=== PATIENT | female | born 1930 | race Caucasian/White ===

== ENCOUNTER 2018-11-30 11:29 | Inpatient (IN) | payer MEDICARE, BC ==
[~2018-11-30] VITALS: Ht 165.1 cm; Wt 43.3 kg
[2018-11-30] MEDS ORDERED: B-12 100 MCG PO (11:57)
[2018-11-30] MEDS ORDERED: ASPIRIN 81M81 MG/TA2 PO (11:57)
[2018-11-30 12:16] LABS: BASO # 0.1 (0.0-0.2); BASO % 0.5 % (0.0-2.0); EOS % 0.4 % (0-4.0); GRAN # 7.6 (1.4-6.5); GRAN % 75.7 % (42.2-75.2); HEMATOCRIT 44.3 % (37.0-47.0); HEMOGLOBIN 14.7 g/dl (12.5-16.0); LYMPH # 1.8 (1.2-3.4); LYMPH % 17.9 % (20.0-51.0); MEAN CELL VOLUME 98 fl (80.0-100.0); MEAN CORPUSCULAR HEMOGLOBIN 33 pg (27.0-31.0); MEAN CORPUSCULAR HGB CONC 33 g/dl (33.0-37.0); MONO # 0.5 (0.1-0.6); PLATELET COUNT 293 K/mm3 (130-400); RED BLOOD COUNT 4.51 M/mm3 (4.10-5.30); REDCELL DISTRIBUTION WIDTH-CV 12.7 % (11.5-14.5)
[2018-11-30 12:28] LABS: ALBUMIN 4.3 gm/dL (3.5-5.0); BILIRUBIN,TOTAL 0.7 mg/dL (0.0-1.0); CALCIUM 9.7 mg/dL (8.4-10.2); CREATININE, serum 0.69 mg/dL (0.52-1.25); POTASSIUM 4.5 mmol/L (3.4-5.0); TOTAL PROTEIN 7.5 gm/dL (6.4-8.2)
--- NOTE | 2018-11-30 15:20 | NUR ---
admitted to room from ED per cart, assisted off cart and into bed per slide board, tolerated being moved without c/os pain
--- NOTE | 2018-11-30 15:30 | NUR ---
full assessment completed, see intervention for further info, denies pain or needs at this time, instructed on ordering regular food, daughter at bedside
[2018-11-30 15:41] LABS: PROTHROMBIN TIME 11.4 SECONDS (9.7-12.8)
[2018-11-30 15:56] VITALS: BP 108/62; PULSE 78; TEMP 98
--- NOTE | 2018-11-30 16:20 | NUR ---
cardiopulmonary in and EKG completed, then simmons cath inserted under sterile technique, tolerated well
--- NOTE | 2018-11-30 16:40 | NUR ---
sitting up in bed to eat supper
[2018-11-30 16:50] LABS: MUCOUS Present /lpf; PH 5 (5-8); SQUAMOUS EPITHELIAL None Seen /hpf; URINE APPEARANCE Hazy; URINE BACTERIA Rare /hpf; URINE BILIRUBIN Negative (NEGATIVE); URINE BLOOD 1+ (NEGATIVE); URINE COLOR Amber; URINE GLUCOSE Negative (NEGATIVE); URINE KETONE Trace (NEGATIVE); URINE LEUKOCYTE ESTERASE Negative (NEGATIVE); URINE NITRATE Positive (NEGATIVE); URINE PROTEIN(semi-quant) 1+ (NEGATIVE); URINE RBC 0-2 /hpf; URINE WBC 0-2 /hpf
[2018-11-30 17:05] LABS: COLLECTION METHOD CLEAN CATCH
--- NOTE | 2018-11-30 17:15 | NUR ---
had only small amount of supper, states just no appetite, IV started in left forearm, family in to visit
--- NOTE | 2018-11-30 18:23 | NUR ---
resting in bed with TV on, denies needs
--- NOTE | 2018-11-30 18:47 | NUR ---
bedside shift report given to CALLI Ackerman
[2018-11-30 19:47] VITALS: BP 102/59; PULSE 86; TEMP 98.6
--- NOTE | 2018-11-30 20:00 | NUR ---
Patient in bed resting, Daughter at bedside. Shift assessment complete. Maza to dependent drainage with hazy han urine present. Right arm with reyes wrap and splint. Teds and SCDs to BLE. Pedal pulses intact to BLE. Denies pain at this time. Denies further needs at this time.
[2018-12-01] VITALS (12 sets, daily range): BP systolic 91–141; BP diastolic 52–96; PULSE 68–94; TEMP 97.7–98.5
--- NOTE | 2018-12-01 03:40 | NUR ---
Contacted Yessy ENCARNACION, patient having low urine output. Fluid bolus, and increased fluid rate. Will continue to monitor.
--- NOTE | 2018-12-01 05:44 | NUR ---
Patient has rested well through the night, minimal needs. Maza maintained to dependent drainge with hazy han urine present. Continues to deny pain. Tedhose and SCDs to BLE. Denies further needs at this time. Will report off to day shift.
[2018-12-01 08:18] LABS: BASO % 0.5 % (0.0-2.0); EOS % 0.5 % (0-4.0); GRAN # 5.7 (1.4-6.5); GRAN % 69.5 % (42.2-75.2); LYMPH # 1.4 (1.2-3.4); LYMPH % 17.6 % (20.0-51.0); MEAN CELL VOLUME 98 fl (80.0-100.0); MEAN CORPUSCULAR HGB CONC 33 g/dl (33.0-37.0); MEAN PLATELET VOLUME 10.7 fl (7.4-10.4); MONO # 0.9 (0.1-0.6); MONO % 11.4 % (1.7-9.3); PLATELET COUNT 216 K/mm3 (130-400); RED BLOOD COUNT 3.21 M/mm3 (4.10-5.30); REDCELL DISTRIBUTION WIDTH-CV 12.8 % (11.5-14.5)
[2018-12-01 08:20] LABS: HEMATOCRIT 31.5 % (37.0-47.0); HEMOGLOBIN 10.4 g/dl (12.5-16.0); MEAN CORPUSCULAR HEMOGLOBIN 32 pg (27.0-31.0)
[2018-12-01 08:37] LABS: CALCIUM 8.6 mg/dL (8.4-10.2); CREATININE, serum 0.63 mg/dL (0.52-1.25); POTASSIUM 4.5 mmol/L (3.4-5.0)
--- NOTE | 2018-12-01 09:00 | NUR ---
HOSPITALIST TEAM ROUNDING. SEE ORDERS. PATIENT SCHEDULED FOR SURGERY AROUND 1300 TODAY.
--- NOTE | 2018-12-01 09:36 | NUR ---
steel worker met with patient to discuss discharge planning. patient lives in [place] independently. Patients lives at [facility] however she still lives at home. Her PCP is Dr Rogers and she obtains her medications from [facility]. Patient would ilke to go to [facility] for skilled care and signed a choice form. LEONIE called Billy at [facility] who reports they will have an open bed for sure on Tuesday but could possibly on Tuesday if patient is ready to discharge. Referral faxed. LEONIE will continue to follow.
--- NOTE | 2018-12-01 12:52 | NUR ---
PATIENT GOING DOWN TO OR VIA BED. FAMILY AT BEDSIDE. CONSENT ON CHART.
--- NOTE | 2018-12-01 13:05 | NUR ---
Patient accepted to [facility] pending patients Payment of the husbands bill. Billy from [facility] talked with patients son and daughter who report they will pay tuesday all they have to do is transfer the money and bring the check. SW will continue to follow.
--- NOTE | 2018-12-01 18:00 | NUR ---
PATIENT BACK FROM OR. A&O. VSS. DENIES PAIN. PATIENT REPORTS SHE IS HUNGRY AND IS LOOKING AT MENU WITH FAMILY. RUE DRESSING IS CD&I WITH ACEWRAP AND SPLINT. RLE DRESSINGS X3 ARE CD&I WITH GAUZE & TEGA. TEDS TO LLE. SCD'S TO BLE. POSITIVE PEDAL PULSES. CONNOR TO DEPENDENT DRAINAGE. IV FLUIDS INFUSING. NO C/O N/V. FAMILY AT BEDSIDE.
--- NOTE | 2018-12-01 20:00 | NUR ---
Patient resting in bed at this time. Patient is easily rousable and is alert and oriented while awake, answers questions appropriately. Post op check continue per order, VS WNL. Patient denies pain or needs at this time, call light within reach.
[2018-12-02 03:58] VITALS: BP 131/64; PULSE 82; TEMP 98
--- NOTE | 2018-12-02 05:23 | NUR ---
Patient has rested well overnight. Patient is alert and oriented while awake. No complaints of pain. CMS intact in operative extremities. IVF continue per order. Gauze dressing to right hip remains CDI. Sling in right arm, dressing appears to be CDI. Patient denies further needs at this time, call light within reach.
[2018-12-02 06:05] LABS: BASO % 0.3 % (0.0-2.0); EOS % 0.1 % (0-4.0); GRAN % 74.9 % (42.2-75.2); LYMPH % 12.4 % (20.0-51.0); MEAN CELL VOLUME 98 fl (80.0-100.0); MEAN CORPUSCULAR HGB CONC 33 g/dl (33.0-37.0); MEAN PLATELET VOLUME 10.8 fl (7.4-10.4); MONO % 11.9 % (1.7-9.3); PLATELET COUNT 165 K/mm3 (130-400); RED BLOOD COUNT 2.43 M/mm3 (4.10-5.30); REDCELL DISTRIBUTION WIDTH-CV 12.5 % (11.5-14.5)
[2018-12-02 06:14] LABS: HEMATOCRIT 23.9 % (37.0-47.0); HEMOGLOBIN 7.9 g/dl (12.5-16.0); MEAN CORPUSCULAR HEMOGLOBIN 33 pg (27.0-31.0)
[2018-12-02 06:21] LABS: CALCIUM 7.9 mg/dL (8.4-10.2); CREATININE, serum 0.57 mg/dL (0.52-1.25)
[2018-12-02 14:15] LABS: HEMATOCRIT 23.3 % (37.0-47.0)
--- NOTE | 2018-12-02 18:51 | NUR ---
REPORT GIVEN TO CALLI TOLBERT.
[2018-12-02 19:20] VITALS: BP 114/59; PULSE 73; TEMP 97.7
--- NOTE | 2018-12-02 20:00 | NUR ---
Patient resting in bed at this time. Patient rouses easily and is alert and oriented while awake, answers questions appropriately. Patient on room air initially, replaced O2 and reminded patient of need to wear nasal cannula. Dressing to right hip is CDI, right arm remians in sling, dressing appears CDI, CMS intact on both operative extremeties. Patient currently denies pain. Maza remains in place draining clear, yellow urine. Patient denies further needs at this time, call light within reach.
[2018-12-03 04:15] VITALS: BP 114/65; PULSE 78; TEMP 98.3
--- NOTE | 2018-12-03 05:45 | NUR ---
Patient rested well overnight. No complaints of pain. Maza remains in place draining clear, yellow urine. Patient denies further needs, call light within reach.
[2018-12-03 06:01] LABS: BASO % 0.2 % (0.0-2.0); EOS % 0.2 % (0-4.0); GRAN # 6.8 (1.4-6.5); LYMPH # 1.3 (1.2-3.4); LYMPH % 13.7 % (20.0-51.0); MEAN CELL VOLUME 97 fl (80.0-100.0); MEAN CORPUSCULAR HGB CONC 33 g/dl (33.0-37.0); MEAN PLATELET VOLUME 10.3 fl (7.4-10.4); MONO # 1.1 (0.1-0.6); MONO % 11.4 % (1.7-9.3); PLATELET COUNT 171 K/mm3 (130-400); RED BLOOD COUNT 2.57 M/mm3 (4.10-5.30); REDCELL DISTRIBUTION WIDTH-CV 12.4 % (11.5-14.5)
[2018-12-03 06:12] LABS: CALCIUM 8.2 mg/dL (8.4-10.2); CREATININE, serum 0.51 mg/dL (0.52-1.25); POTASSIUM 3.9 mmol/L (3.4-5.0)
[2018-12-03 06:13] LABS: HEMATOCRIT 24.9 % (37.0-47.0); HEMOGLOBIN 8.3 g/dl (12.5-16.0); MEAN CORPUSCULAR HEMOGLOBIN 32 pg (27.0-31.0)
--- NOTE | 2018-12-03 08:00 | NUR ---
PATIENT IS DROWSY THIS MORNING, BUT AROUSES EASILY TO NAME. PATIENT IS A&O. VSS. GENERALIZED WEAKNESS NOTED. UPPER LUNG LOBES CLEAR TO AUSCULTATION. BASES COARSE BILATERALLY. PATIENT DENIES SHORTNESS OF BREATH. PATIENT HAS PRODUCTIVE COUGH WITH SMALL AMOUNTS OF PALE YELLOW SPUTUM. 02 AT 2L VIA NASAL CANNULA. BOWEL SOUNDS ACTIVE ALL FOUR QUADRANTS. PATIENT TOLERATING FOOD & LIQUIDS WITHOUT ANY COMPLAINTS OF N/V. POSITIVE PEDAL PULSES EQUAL BILATERALLY. 1+ PITTING-EDEMA TO RLE NOTED. REDNESS ON RIGHT BARRIOS AROUND SCABBED OVAL SHAPED ULCER NOTED. CAP REFILL <3 SECONDS. CMS INTACT. NELL HOSE TO LLE. RIGHT HIP DRESSED WITH GAUZE AND TEGADERM AND IS CD&I. RUE TO SLING WITH SPLINT. CONNOR CATHETER TO DEPENDENT DRAINAGE WITH SMALL AMOUNTS OF PALE YELLOW URINE PRESENT IN CONNOR BAG. INT TO LEFT FOREARM. PATIENT REPOSITIONED IN BED. RLE & RUE POSITIONED ON PILLLOWS. CALL LIGHT WITHIN REACH. PATIENT DENIES ANY OTHER NEEDS AT THIS TIME.
--- NOTE | 2018-12-03 11:00 | NUR ---
PATIENT RIGHT BARRIOS SCAB DRESSED WITH NON-ADHESIVE GAUZE PAD & COVERED WITH COBAN. NELL HOSE APPLIED OVER NEW BARRIOS DRESSING.
--- NOTE | 2018-12-03 11:45 | NUR ---
CONNOR CATHETER DC'D PER DOCTOR'S ORDERS. 9 MLS OF SALINE ASPIRATED FROM CONNOR BALLOON. BALLOON TIP INTACT. PATIENT TOLERATED WELL. NO OTHER NEEDS AT THIS TIME.
--- NOTE | 2018-12-03 14:08 | NUR ---
PATIENT HAD INCONTINENT VOID AFTER CONNOR REMOVAL. PATIENT VOIDING SUFFICIENTLY.
--- NOTE | 2018-12-03 19:13 | NUR ---
REPORT GIVEN TO SHAYY TOLBERT.
[2018-12-03 20:24] VITALS: BP 96/53; PULSE 86; TEMP 97.5
[2018-12-04 00:20] VITALS: BP 109/61; PULSE 86; TEMP 98.2
[2018-12-04 04:00] VITALS: BP 118/67; PULSE 84; TEMP 98.4
--- NOTE | 2018-12-04 04:50 | NUR ---
Patient has rested intermittently overnight. Patient has continued to deny pain. Gauze dressing to right hip remains CDI, right arm in sling, CMS intact to both operative extremities. Patient has had two incontinent episodes this shift, is able to report to staff when she needs help getting cleaned up. Patient is otherwise alert and oriented, answers questions appropriately. IV site was due to be changed early in the shift, Replaced it with a 22G in left forearm in one attempt; patient tolerated procedure well, no indication of infilration. Patient denies pain or further needs at this time, call light within reach.
--- NOTE | 2018-12-04 06:48 | NUR ---
awake resting in bed, bedside shift report received from SHAYY Garrett
--- NOTE | 2018-12-04 07:10 | NUR ---
resting in bed and full assessment completed, see interventions for further info, fingers to right hand with some swelling but good cap refill and sensation and able to move them, breakfast ordered
[2018-12-04] MEDS ORDERED: SENOKOT S 50 MG1 TAB PO (07:35)
[2018-12-04] MEDS ORDERED: TYLENOL 325MG325 MG PO (07:36)
[2018-12-04] MEDS ORDERED: GOOD NEIGH1200 MG/15 PO (07:36)
[2018-12-04] MEDS ORDERED: DULCOLAX S10 MG/SUPP RC (07:36)
[2018-12-04] MEDS ORDERED: ASPI325T6 PO (07:38)
[2018-12-04 07:39] LABS: BASO % 0.3 % (0.0-2.0); EOS # 0.1 (0.0-0.7); EOS % 1.7 % (0-4.0); GRAN # 5.3 (1.4-6.5); GRAN % 69.2 % (42.2-75.2); LYMPH # 1.3 (1.2-3.4); MEAN CELL VOLUME 99 fl (80.0-100.0); MEAN CORPUSCULAR HGB CONC 33 g/dl (33.0-37.0); MEAN PLATELET VOLUME 10.3 fl (7.4-10.4); MONO # 0.9 (0.1-0.6); MONO % 11.1 % (1.7-9.3); PLATELET COUNT 210 K/mm3 (130-400); RED BLOOD COUNT 2.45 M/mm3 (4.10-5.30); REDCELL DISTRIBUTION WIDTH-CV 12.4 % (11.5-14.5)
[2018-12-04 07:40] VITALS: BP 107/63; PULSE 58; TEMP 98.2
[2018-12-04] MEDS ORDERED: IPRATROPIUM BROM3 M1 IH ×2 (07:40)
[2018-12-04 07:41] LABS: HEMATOCRIT 24.2 % (37.0-47.0); MEAN CORPUSCULAR HEMOGLOBIN 33 pg (27.0-31.0)
[2018-12-04] MEDS ORDERED: ULTRAM 50MG TAB50 MG PO (07:41)
--- NOTE | 2018-12-04 09:00 | NUR ---
Dr Fraire and care team in to see patient
--- NOTE | 2018-12-04 09:31 | NUR ---
hot stick worker met with patient and son, Brando #[phone] to discuss discharge planning. Patient was accepted to skilled care at [facility], however, Dr Fraire has made a referral to [facility]. Patient and son verbalize approval of this plan. We await screening. Worker contacted Billy at [facility] and advised of the above information.
--- NOTE | 2018-12-04 09:45 | NUR ---
resting in bed visiting with family
--- NOTE | 2018-12-04 11:30 | NUR ---
up in recliner and appears to be sleeping, resp quiet and easy
[2018-12-04 11:33] VITALS: BP 86/50; PULSE 68; TEMP 98.1
--- NOTE | 2018-12-04 12:34 | NUR ---
in chair and appears to be sleeping arouses easily
--- NOTE | 2018-12-04 13:13 | NUR ---
Kirsten with INpatient Rehab accepts patient on 12/05/18. Son, daughter, and patient are aware and agreeable to discharge plan. Worker notified Billy at [facility].
--- NOTE | 2018-12-04 14:00 | NUR ---
assisted up and ambulated short distance to bedside commode, then back to bed, tolerated well
[2018-12-04 15:47] VITALS: BP 90/60; PULSE 89; TEMP 98.5
--- NOTE | 2018-12-04 16:06 | NUR ---
resting in bed, states had a good nap
--- NOTE | 2018-12-04 17:00 | NUR ---
watching TV, assisted with ordering supper
--- NOTE | 2018-12-04 18:45 | NUR ---
bedside shift report given to CALLI Noel
[2018-12-04 20:08] VITALS: BP 134/78; PULSE 80; TEMP 98.6
--- NOTE | 2018-12-04 21:08 | NUR ---
Pt resting in bed watching TV, talkative and appropriate, some C/O pain in R foot, loosened SCD on R side to provide relief. left Pt call light in reach, bed in lowest position.
--- NOTE | 2018-12-05 05:17 | NUR ---
Pt slep well during the night, no C/O or noticable indication of pain during the shift, VS have been stable. Pt kept the right arm elevated on pillows.
[2018-12-05 07:04] VITALS: BP 113/70; PULSE 99; TEMP 97.4
[2018-12-05] MEDS ORDERED: FERROUS SU325 MG/TAB PO (07:39)
[2018-12-05] MEDS ORDERED: CEFTIN 250250 MG/TAB PO (07:40)
[2018-12-05 08:52] LABS: BASO % 0.4 % (0.0-2.0); EOS # 0.2 (0.0-0.7); EOS % 1.9 % (0-4.0); GRAN # 7.3 (1.4-6.5); GRAN % 75.4 % (42.2-75.2); LYMPH # 1.5 (1.2-3.4); LYMPH % 15.3 % (20.0-51.0); MEAN CELL VOLUME 97 fl (80.0-100.0); MEAN CORPUSCULAR HGB CONC 33 g/dl (33.0-37.0); MEAN PLATELET VOLUME 10.3 fl (7.4-10.4); MONO # 0.6 (0.1-0.6); MONO % 6.6 % (1.7-9.3); PLATELET COUNT 246 K/mm3 (130-400); RED BLOOD COUNT 2.99 M/mm3 (4.10-5.30); REDCELL DISTRIBUTION WIDTH-CV 12.7 % (11.5-14.5)
[2018-12-05 08:54] LABS: HEMOGLOBIN 9.7 g/dl (12.5-16.0); MEAN CORPUSCULAR HEMOGLOBIN 32 pg (27.0-31.0)
--- NOTE | 2018-12-05 10:39 | NUR ---
The patient is to transfer to [facility] today, 12/05. No additional needs at this time.
[2018-12-05 11:21] VITALS: BP 108/67; PULSE 100; TEMP 98.2
--- NOTE | 2018-12-05 14:13 | NUR ---
report to Ericka MCCURDY. pt Transfered to IPR.@[id number]
== END 2018-12-05 13:30 | DRG 480 ==
LOC: COL.ER 11:29 → SURG 12:33
PROVIDERS: Emergency Medicine; Nurse Practitioner Family; Orthopaedic Surgery; Physician Assistant; ADMIT Family Medicine
PROC: 0QS636Z Reposition Right Upper Femur with Intramedullary Internal Fixation Device, Percutaneous Approach (ICD-10-PCS; principal; 2018-12-01 13:30)
PROC: 0PSK04Z Reposition Right Ulna with Internal Fixation Device, Open Approach (ICD-10-PCS; 2018-12-01 13:30)
DX: S72.21XA Displaced subtrochanteric fracture of right femur, initial encounter for closed fracture (principal); J96.01 Acute respiratory failure with hypoxia; E43 Unspecified severe protein-calorie malnutrition; N39.0 Urinary tract infection, site not specified; Z68.1 Body mass index [BMI] 19.9 or less, adult; S52.021A Displaced fracture of olecranon process without intraarticular extension of right ulna, initial encounter for closed fracture; W01.0XXA Fall on same level from slipping, tripping and stumbling without subsequent striking against object, initial encounter; T68.XXXA Hypothermia, initial encounter; F17.210 Nicotine dependence, cigarettes, uncomplicated; J44.9 Chronic obstructive pulmonary disease, unspecified; D50.0 Iron deficiency anemia secondary to blood loss (chronic); B96.20 Unspecified Escherichia coli [E. coli] as the cause of diseases classified elsewhere
CPT/HCPCS: 99222-AI; 99232-AI; 99233-AI; 99239; A4216; A9284; C1713; J0690; J0696; J1650; J2250; J2370; J2704; J2795; J3010; J7050; J7120; Q4050

== ENCOUNTER 2018-12-05 13:11 | Inpatient (IN) | payer MEDICARE, BC ==
[~2018-12-05] VITALS: Ht 165.1 cm; Wt 45.2 kg
[~2018-12-05 13:11] MED LIST: ASPI325T6 PO; ASPIRIN 81M81 MG/TA2 PO; B-12 100 MCG PO; CEFTIN 250250 MG/TAB PO; DULCOLAX S10 MG/SUPP RC; FERROUS SU325 MG/TAB PO; GOOD NEIGH1200 MG/15 PO; IPRATROPIUM BROM3 M1 IH; SENOKOT S 50 MG1 TAB PO; TYLENOL 325MG325 MG PO; ULTRAM 50MG TAB50 MG PO
[2018-12-05 14:18] VITALS: BP 115/74; PULSE 94; TEMP 97.6
[2018-12-05 18:02] VITALS: BP 118/75; PULSE 106; TEMP 97.9
--- NOTE | 2018-12-05 18:30 | NUR ---
Patient arrived to Room 335 this afternoon at 1350 today. Denies pain at this time. Reviewed IPR daily routines and patient signed admission forms. Initial was completed by Grisel. Patient comfortable resting in recliner, call light in reach, chair alarm on and slip proof socks on. Patient in pleasent mood. Will continue to monitor.
--- NOTE | 2018-12-05 21:15 | NUR ---
HS meds all reviewed and taken without problems. Denies pain or need for pain med. See admission assessment. RUE splint/reyes/sling CDI fingers puffy but pink and warm and pathologist assistant moderate. Noted 1.5cm/1 cm wound to right vazquez thats surrounded by dry scaly skin/center dk reddish color/no active drainage. Obtained wound at home when picking up wood for fireplace,dropped and hit leg. Area cleansed with saline, patted dry, xeroform applied followed by exu-dry wound dressing. Patient reports wound doesn't hurt. Lower right leg has brownish discoloration. Patient declines snack and HS care.
--- NOTE | 2018-12-05 23:00 | NUR ---
Patient rests in bed with eyes closed. Respirations with ease.
--- NOTE | 2018-12-06 02:45 | NUR ---
Patient has been resting with eyes closed. Respirations with ease. RT did o2 spot check and read 92% RA.
--- NOTE | 2018-12-06 04:30 | NUR ---
Nurse into patients room and patient awake. Reports she needs to go to the bathroom. "already wet myself". Max 2 assist to sit up,stand and rest back in bed. Staff changes patients pullup. Declines pain med.
[2018-12-06 04:33] VITALS: BP 127/75; PULSE 90; TEMP 97.8
--- NOTE | 2018-12-06 12:40 | NUR ---
Pt's sister Abbey visiting and doing pt's hair in curls and nancy pins. Pt denies pain, declines offer of tylenol or alt food for lunch.
--- NOTE | 2018-12-06 12:41 | NUR ---
Air mattress in place on bed and seat cushion in recliner.
[2018-12-06 17:37] VITALS: BP 113/72; PULSE 43; TEMP 97.5
--- NOTE | 2018-12-06 20:31 | NUR ---
Pt declined tylenol with supper, set up in bed, report to CALLI Valdivia. Bed alarm on. Call light in reach.
[2018-12-06 20:42] VITALS: PULSE 90
--- NOTE | 2018-12-06 21:00 | NUR ---
PLEASANT AND COOPERATIVE. A&O X4. SEE COMPLETED ASSESSMENT. SEE MAR FOR TYLENOL FOR GENERALIZED ACHES. TOOK HS SNACK. RT HERE EARLIER FOR O2 SAT CHECK- 91% RA. WEARS BRIEFS FOR URINARY INCONTINENCE. CALL LIGHT IN REACH. BED ALARM SET.
--- NOTE | 2018-12-06 23:00 | NUR ---
MAX 1 ASSIST TO BSC WITH HEMIWALKER. VOIDED WITH LG SOFT BROWN BM. CHANGED CLOTHING THE THE NIGHT. SLING TO RUE SPLINT. FINGERS WARM PINK & SWOLLEN. ELEVATED ON PILLOW WHEN BACK IN BED. RLE ELEVATED ON PILLOW. DENIES NEEDS FOR FURTHER PAIN MED. CALL LIGHT IN REACH. BED ALARM SET. TEDS OFF FOR THE NIGHT.
[2018-12-07 06:46] VITALS: BP 104/72; PULSE 78; TEMP 98.9
--- NOTE | 2018-12-07 06:56 | NUR ---
O2 SAT 81`% RA. STARTED O2 AT 1L NC.
[2018-12-07 07:46] VITALS: PULSE 92
--- NOTE | 2018-12-07 07:49 | NUR ---
Report from CALLI Valdivia. Pt sitting up in bed for breakfast. Takes pills with water, Rechecked SpO2 on RA=92% with prompting to take deep breaths. Radial pulse 92.
--- NOTE | 2018-12-07 09:47 | NUR ---
Pt called to return to bed after first therapy, next therapy is ST, pt agreeable to sit up in wc. Donned right NELL malik as pt states it feels more comfortable with it on. Yellow gripper socks in place.
--- NOTE | 2018-12-07 09:48 | NUR ---
Wound dressing to RLE intact
--- NOTE | 2018-12-07 10:28 | NUR ---
Coccyx: Left coccyx has intact blistered areas that are non-blanchable, right side of coccyx is blanchable. Applied flower petal foam pad. Pt to bed with RLE and RUE elevated, TEDS GUY, air mattress in place. Alarm on, call light in reach, sling to RUE. Pt pivot transferred with mod assist of one and a second assit for toileting management on BSC, continent, wearing pull ups, had BM.
--- NOTE | 2018-12-07 10:50 | NUR ---
SW met with the patient to complete intial intake and to discuss the IPR Team Conference Note. The patient lives alone in [place]. Her resides at [facility] and her son, Anatoliy, lives outside of [place] and works at [employer]. She reports being independent with ADLs prior to IPR and has a cane, walkers, and wheelchair. The patient's PCP is Dr. Marshal Rogers and she receives her medications at the [facility]. She reports no difficulties obatining her meds. The patient does not have advanced directives in EMR, but she states that she does have them completed. SW reviewed the IPR Team Conference Note with the patient and discussed having a family meeting next Tuesday, 12/13. The patient was in agreeance to the plan and had no other questions or concerns at this time. SW contacted the lisa's son, Anatoliy. A family meeting was scheduled for 12/13 at 1345. SW to continue to follow.
[2018-12-07 15:20] VITALS: BP 112/74; PULSE 109; TEMP 98.5
--- NOTE | 2018-12-07 20:04 | NUR ---
Patient resting in bed watching tv. Requested to be boosted up in bed. Denies pain. Evening medications given. No other needs at this time.
--- NOTE | 2018-12-07 21:11 | NUR ---
Report to Rosie. Pt in bed with alarm on, call lt in reach. Denies needs/pain
[2018-12-08 04:46] VITALS: BP 116/93; PULSE 99; TEMP 98.2
[2018-12-08 06:17] LABS: BASO % 0.3 % (0.0-2.0); EOS # 0.2 (0.0-0.7); GRAN # 8.8 (1.4-6.5); GRAN % 78.8 % (42.2-75.2); LYMPH # 1.1 (1.2-3.4); MEAN CELL VOLUME 99 fl (80.0-100.0); MEAN CORPUSCULAR HGB CONC 33 g/dl (33.0-37.0); MEAN PLATELET VOLUME 9.9 fl (7.4-10.4); MONO # 0.9 (0.1-0.6); MONO % 8.1 % (1.7-9.3); PLATELET COUNT 238 K/mm3 (130-400); RED BLOOD COUNT 2.62 M/mm3 (4.10-5.30); REDCELL DISTRIBUTION WIDTH-CV 14.1 % (11.5-14.5)
[2018-12-08 06:30] LABS: HEMATOCRIT 25.9 % (37.0-47.0); HEMOGLOBIN 8.5 g/dl (12.5-16.0); MEAN CORPUSCULAR HEMOGLOBIN 32 pg (27.0-31.0)
--- NOTE | 2018-12-08 06:37 | NUR ---
Patient slept most of the night, no pain. VSS. No other needs at this time.
[2018-12-08 18:57] VITALS: BP 107/58; PULSE 85; TEMP 98.1
--- NOTE | 2018-12-08 19:00 | NUR ---
Patient resting in bed at this time, call light in reach and bed alarm is on. Rt. hip incision is CDI and gauze and tegaderm in place. NWB to E and has arm in sling at this time. Patient reporting some pain to her upper chest when she was transferred the other day. Pain is minimal, but enough to bother her, currently has a heat pad on that area, no bruising observed. Reported off to night nurse to make sure staff transfer her gently and put gait belt around waist only. She voiced understanding. Patient wears briefs. Reported some 1-2/10 pain to RUE and RLE this morning prior to therapy and given prn tylenol with good effect. Patient atteneded all therapies. She doesn't eat very much, but has been drinking her nutrition drinks today. Gave report to night nurse.
--- NOTE | 2018-12-08 20:00 | NUR ---
Patient in bed resting. Alert and oriented x3. Shift assessment complete. Tedhose to BLE. Left hip incisions CDI. Denies pain. Left arm in sling with ABAD wrap, CDI. Denies further needs at this time.
[2018-12-09 02:10] VITALS: PULSE 79
[2018-12-09 05:23] VITALS: BP 116/72; PULSE 86; TEMP 97.7
--- NOTE | 2018-12-09 05:52 | NUR ---
Patient has rested well through the night. Minimal needs. Up to comode, x1 assist. Continues to deny pain at this time. Laith hose to BLE maintained through the night. Denies further needs at this time.
--- NOTE | 2018-12-09 09:18 | NUR ---
PT DENIES PAIN, NO MEDS GIVEN. PT REPORTS EATING WELL. GAUZE DRESSING TO RIGHT HIP AND DOWN THE THIGH, IN SMALL GAUZE SWUARES, CDI. RIGHT ELBOW IN SLING WITH HOT PAD IN PLACE. PT STATES THIS FEELS GOOD. PT TAKES MED EASILY WITH WATER. APPEARS HAPPY AND VERY CONVERSANT WITH STAFF. WITH A LOT OF TAKING PT IS SOB. IS AT BEDSIDE. ENCOURAGED TO USE IS. CALL LIGHT IN REACH.
[2018-12-09 17:08] VITALS: BP 110/60; PULSE 94; TEMP 100; TEMP 98.1
--- NOTE | 2018-12-09 20:30 | NUR ---
Pt. laying in bed watching TV. Pt. is A&OX3, assessment complete. Pt. denies pain or other needs at this time. Call light within reach.
[2018-12-10 03:43] VITALS: BP 136/81; PULSE 90; TEMP 98.2
--- NOTE | 2018-12-10 05:43 | NUR ---
Pt. slept well through the night. Pt. remains A&Ox3. Pt. denies pain or other needs. Call light within reach.
--- NOTE | 2018-12-10 08:00 | NUR ---
PATIENT IS DROWSY THIS MORNING AND RESTING IN BED, BUT AROUSES EASILY TO NAME. PATIENT IS A&O. GENERALIZED WEAKNESS NOTED. BOWEL SOUNDS HYPOACTIVE ALL FOUR QUADRANTS. PATIENT TOLERATING FOOD & LIQUIDS WITHOUT ANY COMPLAINTS OF N/V. POSITIVE PEDAL PULSES EQUAL BILATERALLY. CAP REFILL <3 SECONDS. CMS. RIGHT HIP INCISION SITES X2 DRESSED WITH GAUZE AND TEGADERM AND ARE CD&I. NELL HOSE AND SCD'S TO BLE. MEPLEX TO RIGHT BARRIOS SKIN TEAR IS CD&I. RUE TO SPLINT WITH SLING AND IS CD&I. NON-PITTING EDEMA TO RIGHT HAND NOTED. CMS INTACT. CAP REFILL <3 SECONDS. PATIENT DENIES PAIN AT THIS TIME. BREAKFAST TRAY EATEN. PATIENT REPOSITIONED IN BED. CALL LIGHT WITHIN REACH. PATIENT DENIES ANY OTHER NEEDS AT THIS TIME.
[2018-12-10 17:25] VITALS: BP 108/61; PULSE 90; TEMP 97.5
--- NOTE | 2018-12-11 01:12 | NUR ---
THE PT WAS BEDRESTING WITH TV ON THE SHIFT BEGAN. 1 MAX ASSIST TO BRING HER TO THE CENTER OF THE BED AND UP SHE HAD SLID DOWN AND WORKED HERSELF OVER TO THE LEFT EDGE OF THE BED. RIGHT ARM IN A SLING, CSM'S +, VERBALIZED THAT SHE FEELS THE SWELLING IS SLOWLY GETTING BETTER. REFUSED AN HS SNACK, RATED PAIN AT A 3\10. SHE IS A 1 MOD ASSIST TO TRANSFER TO [facility] AND VOIDED, SHE REFUSED BOWEL MEDS, STATED THAT SHE HAD GONE LOOSE TODAY. SHE TOOK HER IRON WITH APPLE JUICE. WHEN UP SHE IS VERY GUARDING OF HER RIGHT LOWER EXTREMITY, BUT NEEDS CUES TO NOT USE HER RIGHT UPPER EXTREMITY. ALSO NEEDS SAFETY CUES.
--- NOTE | 2018-12-11 04:21 | NUR ---
THE PT WOKE WITH C\O PAIN, LUMBAR SPINE, REPOSITIONED UP IN BED, EVENED OUT, SCD'S OFF, HAD BEEN UP TO THE BR A SHORT TIME AGO. REQUESTED PAIN MEDS, TYLENOL WITH TRAMADOL, PT ATE 4 OZ PUDDING BEFORE TAKING THE MEDS. BEDRESTING WITH EYES CLOSED, RESP EVEN. VERALIZED THAT SHE HAS HAD ANOTHER FAIRLY GOOD NOC SLEEP.
--- NOTE | 2018-12-11 04:24 | NUR ---
THE PT HAS BEEN UP TO THE BSC TO VOID AND BACK TO BED, WEARS DEPENDS FOR STRESS INCONTINENCE. APPEARS TO GET ADEQUATE SLEEP.
[2018-12-11 05:33] VITALS: BP 116/61; PULSE 83; TEMP 98
--- NOTE | 2018-12-11 05:48 | NUR ---
PT'S SAO2 87%, CALL TO DULCE KWAN, WHO SAID, YES, OK TO INCREASE O2 TO 3LNC. PT IS USING HER IS NOW AND ENCOURAGED TO TAKE DEEP BREATHS THROUGH HER NOSE. WILL RECHECK IN A FEW MINUTES.
--- NOTE | 2018-12-11 09:56 | NUR ---
Report from CALLI Spain. Pt ate breakfast in bed, transferred to BSC with one assist, gait belt, hemiwalker, O2 at 3L/NC, removed to go to therapies. NELL hose placed, wears pull ups, enc use of IS. Pt now to WC. Reminded pt to elevate RUE on pillows above heart, assisted.
[2018-12-11 18:19] VITALS: BP 111/64; PULSE 85; TEMP 97.8
--- NOTE | 2018-12-11 20:19 | NUR ---
Reminded pt to elevate arm on pillow while in bed. Alarm on, call light in reach, report to CALLI Spain. Pt denies pain
--- NOTE | 2018-12-12 03:27 | NUR ---
THE PT WAS RESTING WITH TV ON THE SHIFT BEGAN, SHE STATED THAT HER PHONE RAND, BUT SHE WAS UNABLE TO GET A RESPONSE WHEN TRYING TO ANSWER IT. THIS NURSE OBTAINED THE PHONE FROM 333, TRIED TO SWITCH IT OUT WITH HER CURRENT PHONE, IT ALSO DIDN'T LIGHT UP WHEN ACTIVATION BUTTON PRESSED, THE PT STATED THAT SHE BELIEVED THAT HER DAUGHTER IS TRYING TO REACH HER, THIS NURSE DIALED HER DAUGHTERS PHONE NUMBER WITH MY PERSONAL CELL PHONE. LEFT THE ROOM SO THEY COULD FREELY TALK. THE RT FOUND ME AND RETURNED THE PHONE ABOUT 30 MIN LATER. THE PT IS A MOD TO MAX ASSIST TO STAND, PIVOT AND SIT ON THE BSC, SHE REQUIRES ASSISTANCE TO LOWER AND RAISE HER DEPENDS AND TO DO TOILET HYGIENE FOR BM. THE PT HAD A SMALL BLACKISH FORMED BM. SHE WAS POSITIONED FOR COMFORT, TOOK 90% OF HER ENLIVE, SPILLED ABOUT 10% ON THE BEDDING, THIS NURSE CHANGED OUT THE SOILED LINEN. PT APPEARS TO GET ADEQUATE SLEEP. ENJOYS CONVERSATION ABOUT HER LIFE AND SON.
[2018-12-12 04:05] VITALS: BP 114/83; PULSE 67; TEMP 97.4
--- NOTE | 2018-12-12 07:51 | NUR ---
Patient resting in bed at this time, call light in reach, bed alarm is on and patient eating breakfast. Patient takes pills whole. She was able to scoot herself up in bed this morning on her own with prompting. Patient in pleasent mood and reports that she slept with this morning. Denies pain at this time.
[2018-12-12 17:57] VITALS: BP 107/61; PULSE 93; TEMP 97.5
--- NOTE | 2018-12-12 18:00 | NUR ---
Patient attended all therapies today. Currently resting in bed, call light in reach and bed alarm on with slip proof socks on. She was a one to two person transfer at times this shift. Her bottom has a slight redness to it and two small little pimples, but no open areas. Will continue to monitor. Patient received her new hinged elbow brace today. This nurse will contact ortho tomorrow to let them know that brace has been received so he can come by to remove patient's stitches. Encouraged IS today. Will continue to monitor.
--- NOTE | 2018-12-12 22:15 | NUR ---
HS meds all reviewed and given. Patient heavy mod/max assist to BSC and max assist with pants/pullup down and up and to wipe. Had small hard formed dk brown bm. Assisted to rest back in bed. RUE and BLE elevated on pillow. Denies need for pain med. States her feet were burning from too many covers and yellow socks/removed.
--- NOTE | 2018-12-13 02:00 | NUR ---
Patient rests quietly in bed. Respirations with ease.
--- NOTE | 2018-12-13 03:20 | NUR ---
Patient reports slept until now. Up mod assist to BSC. Max assist with pants down and up and to rest back in bed. Denies further needs.
[2018-12-13 03:51] VITALS: BP 131/80; PULSE 76; TEMP 98.1
--- NOTE | 2018-12-13 09:31 | NUR ---
Patient resting in bed at this time, call light in reach, bed alarm is on and she is currently using the IS appropriatly sometimes. Denies pain. Patient reports having a small BM this morning this nurse did not observe this. Attended therapy this morning. Will continue to monitor.
--- NOTE | 2018-12-13 17:02 | NUR ---
SW attended a family meeting with the patient and patient's son and daughter. Also present was IPR Director, PT, OT, and ST. IPR Director started by explaining the purpose of the meeting. PT/OT/ST reviewed how the patient is doing and their recommendations for the patient being re-evaluated next Tuesday, 12/20, with a tentative discharge for Tuesday, 12/20. Also discussed was the possible need for home oxygen and a hemiwalker upon discharge. The patient and patient's children were in agreeance to this plan. The team answered all questions. SW to continue to follow.
[2018-12-13 17:43] VITALS: BP 111/64; PULSE 80; TEMP 97.3
--- NOTE | 2018-12-13 20:15 | NUR ---
HS meds all reviewed and given. Patient assisted max 1 assist up and over in bed. BLE and RUE elevated on pillow. Dressing change done to right medial vazquez see assessment. Patient denies pain or further needs. Watches TV. Ate several bites of brownie for snack.
--- NOTE | 2018-12-14 03:00 | NUR ---
Patient has been resting with eyes closed. Respirations with ease through the night.
--- NOTE | 2018-12-14 04:30 | NUR ---
Patient has been resting with eyes closed. Awakened and offered toileting. Mod assist to transfer bedside commode. Max assist pants up and down. Assist legs into bed but sat self up on side of bed with HOB elevated. Denies pain.
[2018-12-14 05:27] VITALS: BP 123/71; PULSE 71; TEMP 97.9
--- NOTE | 2018-12-14 10:49 | NUR ---
Luisa, OT states that materials management did not have correct Hinged Elbow Brace/Elbow IROM. Spoke with Elisabet, IPR director who recommended f/u w/ SW and ask about obtaining from [facility]. SW had Nubia HS order one through materials management, awaiting delivery. Pt reports light phlegm. Sling and splint to RUE, pt needs cues to NWB to RUE, transfers with hemiwalker. OT applied TEDS and yellow gripper socks. On O2/NC. Takes pills whole with water. Pleasant, denies pain, just "pressure" to RLE w/ amb.
[2018-12-14 15:17] VITALS: BP 106/71; PULSE 73; TEMP 97.4
--- NOTE | 2018-12-14 15:33 | NUR ---
LEONIE met with the patient and patient's daughter to discuss the IPR Team Conference Note and to review the teams recommendation of a discharge for Tuesday, 12/22, and being re-evaluated next Tuesday, 12/20. The patient and patient's daughter were in agreeance to this plan. LEONIE also discussed therapies recommendation of a hemiwalker. The patient reports that she would prefer to get the hemiwalker from [facility]. LEONIE answered all questions and will continue to follow.
--- NOTE | 2018-12-14 17:42 | NUR ---
Enc pt to use IS, R arm is elevated on pillow, swelling improved today, yellow gripper socks in place. Turned bed alarm on, call light in reach. Pt denies pain.
--- NOTE | 2018-12-14 21:00 | NUR ---
PT RESTING IN BED. WATCHING TV. PLEASANT AND COOPERATIVE. PT DENIES PAIN AT THIS TIME. O2 2LNC. TOOK NELL HOSE OFF. RT F/A CAST ON PILLOW. NO EDEMA TO FINGERS. GOOD SENSATION TO ALL EXTREMITIES. CALL LIGHT IN REACH. BED ALARM SET.
[2018-12-15 04:12] VITALS: BP 125/74; PULSE 68; TEMP 97.7
--- NOTE | 2018-12-15 07:42 | NUR ---
Report from CALLI Valdivia. Reported off to CALLI Ibrahim. Pt sitting up in bed eating breakfast.
--- NOTE | 2018-12-15 08:00 | NUR ---
PATIENT SITTING UP IN BED WITH BREAKFAST TRAY AT THE BEDSIDE. PATIENT IS A&O. VSS. BOWEL SOUNDS ACTIVE ALL FOUR QUADRANTS. PATIENT TOLERATING FOOD & LIQUIDS WITHOUT ANY COMPLAINTS OF N/V. PATIENT STATES THAT SHE FEELS SHORT OF BREATH WITH ACTIVITY. PATIENT DENIES A PRODUCTIVE COUGH. ALL LUNG BISHOP CLEAR UPON AUSCULTATION. 02 VIA NASAL CANNULA. POSITIVE PEDAL PULSES EQUAL BILATERALLY. CAP REFILL <3 SECONDS. CMS INTACT. MEPLEX TO RIGHT BARRIOS SKIN TEAR IS CD&I. NELL HOSE TO BLE. MEPLEX TO SACRUM IS CD&I. DIFFUSE BRUSING OVER BODY NOTED. RIGHT HIP INCISIONS X3 DRESSED WITH GAUZE & TEGADERM AND ARE CD&I. RIGHT ELBOW TO SPLINT WITH SLING IS CD&I. CAP REFILL <3 SECONDS. CMS INTACT TO RUE. CALL LIGHT WITHIN REACH. PATIENT DENIES ANY OTHER NEEDS AT THIS TIME.
--- NOTE | 2018-12-15 10:55 | NUR ---
Pt called for assist back to bed from wheelchair during ST. Pt was max assist to stand with gait belt and hemiwalker, needed cued multiple times not to use her RUE in splint, once standing, pt was mostly steady and cued to take a few steps to the bed, cued to bring legs into bed and she did so herself. RUE elevated on pillow in sling. Bed alarm on, call light in reach. ST continues.
--- NOTE | 2018-12-15 11:40 | NUR ---
PATIENT SACRAL MEPLEX DRESSING CHANGED AFTER PATIENT'S SHOWER. NEW MEPLEX IN PLACE AND IS CD&I.
--- NOTE | 2018-12-15 12:38 | NUR ---
REPORT GIVEN TO CALLI TAY.
--- NOTE | 2018-12-15 12:41 | NUR ---
Report from Ami, resuming cares. Turned bed alarm on, enc IS, call light in reach, O2 in place per NC, RUE and RLE elevated on pillows.
--- NOTE | 2018-12-15 14:10 | NUR ---
Changed mepilex dressing to coccyx after shower. Left: drying, ruptured blisters, redness, right: dried flaking skin, intact underneath.
[2018-12-15 16:39] VITALS: BP 101/63; PULSE 77; TEMP 97.3
--- NOTE | 2018-12-15 17:29 | NUR ---
Pt in bed with alarm on, brace in place, continue NWB to RUE, keep brace locked.
--- NOTE | 2018-12-15 21:00 | NUR ---
PT RESTING IN BED. RT ARM ELEVATED ON PILLOWS. IROM IN PLACE TO RT ARM. FINGERS WARM. GOOD SENSATION. SEE MAR FOR TYLENOL GIVEN. PT RELATED HAD SMALL BM EARLIER TODAY. TOOK BOWEL MEDS TONIGHT. ENC MORE PO FLUIDS. O2 2L NC.CONTINUOUS. NO RESP DISTRESS. CALL LIGHT IN REACH. BED ALARM ISET.
[2018-12-16 04:44] VITALS: BP 114/65; PULSE 68; TEMP 98.2
--- NOTE | 2018-12-16 08:30 | NUR ---
PT ALYING IN BED. MEAL ATE 50 %. MEDS GIVEN. DENIES PAIN OR NEEDS. PT ASSISTED TO SIDE OF BED AND PT GETS UP TO VOID ON THE BSC. HAS A LARGE FORMED GREENISH STOOL AND LG VOID. PT ABLE TO CLEAN SELF, BUT NEEDS ASSIST TO PULL UP THE BACK OF HER PANTS. PT PLACED IN WHEELCHAIR FOR ADL'S. CALL LIGHT IN REACH, ALARMS ON
--- NOTE | 2018-12-16 15:33 | NUR ---
FAMILY HERE AND VISITING WITH PT. SHE IS LAYING IN BED. DENIES PAIN OR NEEDS.
[2018-12-16 16:40] VITALS: BP 117/68; PULSE 85; TEMP 98
--- NOTE | 2018-12-16 21:00 | NUR ---
PT RESTING IN BED. WATCHING TV. RT ELBOW INCSION PERFUME COMPOUNDER W/IROM IN PLACE. HEALING SOME SWELLING TO ELBOW NOTED. DENIES PAIN. RT HIP INCISION HEALING WELL.
[2018-12-17 04:25] VITALS: BP 164/88; PULSE 76; TEMP 98.2
[2018-12-17 18:30] VITALS: BP 131/59; PULSE 74; TEMP 97.5
--- NOTE | 2018-12-17 20:22 | NUR ---
Report from CALLI Valdivia. Pt in bed with air mattress in place, to BSC for void and BM, changed Pull up as it was streaked. Pt declined sitting up in chair, returned to bed, TEDS placed, BLE and RUE elevated on pillows, enc IS throughout the day. RT removed O2 this afternoon, was 82% on room air this vickey so notified RT and placed on 1L/NC. Hinged elbow brace in place. Removed gauze, tegaderm from three RLE incisions, had scant old dried drainage, steris intact, left ASSISTANT OFFICE MANAGER. Report to CALLI Spain.
--- NOTE | 2018-12-18 01:36 | NUR ---
THE PT WAS BEDRESTING WITH TV ON LOUDLY ROUNDS WERE MADE. REQUESTED UP TO THE BSC, VOIDED AND HAD A BM, ASSISTED TO BED BY MARJORIE SAENZ, POSITIONED FOR COMFORT. TV OFF, DENIED PAIN. NOTED TO BE RESTING WITH EYES CLOSED, RESP EVEN, O2 ON AT 1 L NC AT 2200.
--- NOTE | 2018-12-18 04:39 | NUR ---
BEDRESTING WITH EYES CLOSED, O2 IN PLACE. APPEARS TO GET ADEQUATE SLEEP.
[2018-12-18 05:41] VITALS: BP 144/76; PULSE 67; TEMP 97.9
--- NOTE | 2018-12-18 07:00 | NUR ---
Bedside shift report received from CALLI Spain. Pt in bed resting, denies needs, will continue to monitor.
--- NOTE | 2018-12-18 09:50 | NUR ---
Assessment charted. Assisted pt to commode, pt gait unsteady, uses quad/erlinda cane but cannot do much with R arm in immobilizer/hinge brace. Pt denies needs, urine was han and hazy. Pt back in bed. Mepilex is on sacrem and CDI. Hip is WA with steristrips. R elbow looks WA. will continue to monitor.
[2018-12-18 15:11] VITALS: BP 113/68; PULSE 77; TEMP 97
--- NOTE | 2018-12-18 18:03 | NUR ---
Pt has done well today. Prefers to be in bed if not doing therapy. Has taken PO well over lunch but minimal so far for supper. Pt denies pain. NELL hose back in place after shower todya. Placed dressing to L elbow for small skin tear present. Will give bedside shift report to nightshift nurse who will resume care.
--- NOTE | 2018-12-19 01:41 | NUR ---
THE PT WAS BEDRESTING AFTER TRIP TO THE FOR A BM, O Entregador SHOW, THEN AN AMAURY RAMOS SPECIAL. SHE IS TALKATIVE AND SMILING SHE VERBALIZED HOW THERE WILL NEVER BE ANOTHER AMAURY. SHE DENIED NUMBNESS IN HER RIGHT UPPER OR LOWER EXTREMITY. SHE STATED THAT SHE HAS BEEN TRYING TO EAT BETTER.HS HIGH NUTRITION DRINK GIVEN, ENCOURAGED HER TO DRINK IT, SHE WORKS ON IT.
[2018-12-19 06:34] VITALS: BP 133/75; PULSE 70; TEMP 98
--- NOTE | 2018-12-19 13:19 | NUR ---
[facility] doesnt have a erlinda walker. LEONIE called around and [facility] has one in stock. LEONIE faxed referral.
--- NOTE | 2018-12-19 17:45 | NUR ---
Patient resting in bed at this time, call light in reach, bed alarm is on. She is watching TV, talking to friend on the phone while eating her supper. Denies pain this shift. Right calf dressing changed. Area is scabbed over with no open areas. Applied only the mepilex as there were no open areas anymore. Will continue to monitor.
[2018-12-19 18:17] VITALS: BP 107/61; PULSE 78; TEMP 97.8
--- NOTE | 2018-12-20 01:41 | NUR ---
THE PT ENJOYES TV, TALKED ON THE PHONE WITH FAMILY. AFFECT PLEASANT, MOD ASSIST TO THE BSC TO VOID, BACK TO BED, POSITIONED FOR COMFORT. THE PT HAD A ROOM ALARM SOUND, SHE STATED THAT SHE WAS JUST TRYING TO GET THE TV OFF. SHE HAD PULLED THE REMOTE CORD FROM THE WALL. RECONNECTED AND THIS NURSE ASSISTED WITH TV OFF. THE PT REPOSITIONED SELF IN BED WITH PILLOW UNDER HER RIGHT UPPER EXTREMITY BRACE.
--- NOTE | 2018-12-20 02:43 | NUR ---
BEDRESTING WITH EYES CLOSED, RESP EVEN. APPEARS TO GET ADEQUATE SLEEP.
[2018-12-20 06:12] VITALS: BP 115/71; PULSE 66; TEMP 97.8
--- NOTE | 2018-12-20 06:17 | NUR ---
CALL LIGHT ACTIVATED BUT PT DIDN'T THINK THAT SHE HAD CALLED, POSSIBLE THAT SHE WAS SIMPLY TRYING TO CHANGE THE TV CHANNEL. PLEASANT.
--- NOTE | 2018-12-20 15:47 | NUR ---
SW met with patient to discuss IPR team conference notes. SW discussed the contents as well as went over the discharge plan for tuesday. Patient reports that her daughter should be able to be with her 13/06 but she doesn't know how long. Patient reports she has a four point cane and regular cane already so if she doesn't need the erlinda walker she will be fine. SW informed her that [facility] did not have one so it would be coming from [facility], patient agreeable. SW called patients daughter Jo to discuss disharge plan. She said that she would at least be able to stay with her for two weeks but that could change if needed. Jo reports she will be there 13/06 with her and that she would like [facility] to do [facility] HH. LEONIE made referral. Patient to pa tuesday.
--- NOTE | 2018-12-20 16:49 | NUR ---
Patient currently drinking her nutrition drink at this time. She is lying in bed, call light in reach and bed alarm is on. Patient denies pain at this time. Patient wrote up her menu for tomorrow and this nurse will fax to the to tray line. Will continue to monitor.
[2018-12-20 18:58] VITALS: BP 100/63; PULSE 79; TEMP 98.1
--- NOTE | 2018-12-20 19:45 | NUR ---
Patient was seen by Dr. Fraire today and he discussed that patient was not on oxygen when at home. He would like to try to titrate her off oxygen if that is possible. She was on 4 L NC and at 97% earlier this evening and this has been decreased to 2 L NC and was at 95% oxygen this evening. Will continue to have staff monitor. Dr. Fraire is okay with her being at 90% RA and above. This was communicated to RT.
--- NOTE | 2018-12-20 20:16 | NUR ---
HX LYMPHOMA. LAST CHEMO 5 MONTHHS AGO. PT THINKS HE GOES BACK TO SEE DR SILVA IN THE NEXT MONTH. PT REPORTS HE FEELS LIKE HIS BREATHING IS WORSE INTIATIALLY AFTER THE SVN TX. WHERE PRIOR TO THIS ILLNESS THE TX WOULD BRING HIM RELIEF. O2 AT 4L NC AT THIS TIME. LOUD AUDIBLE EXP WHEEZE. OCCASIONAL COUGH WITH NO SPUTUM. PT VISIBLLY ANXIOUS. PT STARTING TO SETTLE DOWN APPROX 15-20 MIN AFTER SVN.
--- NOTE | 2018-12-20 20:27 | NUR ---
RN CALLED TO NOTIFY THIS PHOTOGRAPHIC LABORATORY SUPERVISOR THAT DR WOULD LIKE PT TO BE OFF O2 SHE DOESN'T HAVE O2 AT HOME. PT WAS ON 3LPM TOOK OFF TO RA AND WAS SATING IN THE 90S. IS OKAY WITH A 90 SAT. PT WAS FINE AND IN NO DISTRESS AT THIS TIME. I WILL CONTINUE TO ASSESS AND MONITOR HER SATS THROUGHOUT THE NIGHT.
--- NOTE | 2018-12-20 20:30 | NUR ---
ASSIST PT PIVOT TRANSFER TO BSC. PT VERY UNSTEADY WITH CANE. NEEDED MOD ASSIST. PT DENIES PAIN. PT VERBALIZES ALITTLE ANXIOUSNESS ABOUT GOING HOME TUESDAY. CALL LIGHT IN REACH. BED ALARM SET.
--- NOTE | 2018-12-20 21:00 | NUR ---
CLARIFIED WITH RT STAFF CONVERSATION SHE HAD WITH MIGUEL Henning RN. PRIOR TO SHIFT CHANGE. O2 BACK ON AT 2L NC AT HOME.
--- NOTE | 2018-12-20 21:41 | NUR ---
PT GOT UP TO BR. VOIDED. PASSED FLATUS BUT NO BM. LBM TWO DAYS AGO. ABD SOFT BS X4 QUAD. SIGNIFICANT DYSPNEA WITH ACTIVITY. RECOVERS WITHIN 10MIN. STILL HAS AUDIBLE WHEEZING.
[2018-12-21 05:59] VITALS: BP 125/71; PULSE 69; TEMP 97.5
--- NOTE | 2018-12-21 09:39 | NUR ---
PT UP WITH PT WALKED TO THE ELEVATOR APPROX. 50 FEET SPO2 DECREASED TO 86%. 2L REPLACED.
--- NOTE | 2018-12-21 10:25 | NUR ---
Report from CALLI Valdivia. Pt ate breakfast sitting up in bed, air mattress in place, O2@2L/NC, hinged elbow brace to RUE. Pt transferred OOB with gait belt, nurse donned gripper socks, pt pivoted to BSC to void, steadying assist with GB as pt doffed clothing and then voided, continent. Nurse lotioned pt's BLEs and donned TEDs. Dressing to coccyx and right vazquez intact without shadowing. Pt performed laure cares and stood to don pants. Pivoted to wheelchair where pt brushed teeth at sink. Alarm on.
--- NOTE | 2018-12-21 13:56 | NUR ---
[facility] can accept patient for HH however patient will have to follow with Dr hernandez as she hasnt seen her since 2010. LEONIE informed nurse.
--- NOTE | 2018-12-21 17:07 | NUR ---
Pt's sister visiting, pt eating supper, O2 at 2L/NC, denies pain, bed alarm on. Call light in reach.
--- NOTE | 2018-12-21 17:34 | NUR ---
Requested RT provide pt education re: oxygen therapy.
[2018-12-21 18:23] VITALS: BP 110/60; PULSE 80; TEMP 98.1
--- NOTE | 2018-12-21 19:39 | NUR ---
Report to CALLI Ackerman. Pt in bed with alarm on.
--- NOTE | 2018-12-21 20:00 | NUR ---
Patient in bed resting. Alert and oriented x3. Shift assessment complete. Denies pain at this time. Incisions to right hip with edges well approximated. Right upper extremity with hinged brace in place. Dressing sto coccyz and right vazquez intact, CDI. Patient on 2L via NC. Denies further needs at this time.
[2018-12-22 05:52] VITALS: BP 119/58; PULSE 65; TEMP 98.7
[2018-12-22 06:26] LABS: BASO # 0.1 (0.0-0.2); BASO % 0.8 % (0.0-2.0); EOS # 0.2 (0.0-0.7); EOS % 3.2 % (0-4.0); GRAN # 4.2 (1.4-6.5); GRAN % 63.7 % (42.2-75.2); HEMOGLOBIN 10.3 g/dl (12.5-16.0); LYMPH # 1.4 (1.2-3.4); LYMPH % 20.8 % (20.0-51.0); MEAN CELL VOLUME 105 fl (80.0-100.0); MEAN CORPUSCULAR HEMOGLOBIN 32 pg (27.0-31.0); MEAN CORPUSCULAR HGB CONC 31 g/dl (33.0-37.0); MEAN PLATELET VOLUME 9.1 fl (7.4-10.4); MONO # 0.7 (0.1-0.6); MONO % 10.7 % (1.7-9.3); PLATELET COUNT 372 K/mm3 (130-400); RED BLOOD COUNT 3.21 M/mm3 (4.10-5.30); REDCELL DISTRIBUTION WIDTH-CV 15.1 % (11.5-14.5)
--- NOTE | 2018-12-22 06:26 | NUR ---
Patient has rested well through the night. Minimal needs. Denies pain through the night. Brace maintained to RUE. Denies further needs at this time.
[2018-12-22 06:28] LABS: HEMATOCRIT 33.8 % (37.0-47.0)
[2018-12-22 06:33] LABS: CALCIUM 9.1 mg/dL (8.4-10.2); CREATININE, serum 0.54 mg/dL (0.52-1.25); POTASSIUM 4.7 mmol/L (3.4-5.0)
--- NOTE | 2018-12-22 09:19 | NUR ---
Report from CALLI Ackerman. Pt ate breakfast in bed, hinged elbow brace to RUE and air mattress in place. Enc IS, obtains 750, on O2@2L/NC. A&O, pleasantly cooperative. Takes pills whole with thin liquids. Called to toilet, transferred OOB with SBA, GB donned, cane provided, nurse managed O2 tubing, pt amb CGA and unsteady to BR, used toilet riser and grab bars, continent of lots of urine and small BM. Gripper socks in place. Needs cued about NWB to RUE.
--- NOTE | 2018-12-22 09:36 | NUR ---
SW and SW student met with patient to present IM and verbally discuss the contents. Patient was agreeable and signed the form. Original in chart and copy provided to patient. Choice form signed for [facility] for o2. SW called them and cancelled erlinda walker and informed them of o2 order and faxed the order/excercise ox. [facility] will be providing home health PT/OT/SN
[2018-12-22] MEDS ORDERED: PROAIR HFA0.09 MG/AC IH (11:41)
[2018-12-22] MEDS ORDERED: TOPROL XL 25MG25 MG PO (11:43)
[2018-12-22] MEDS ORDERED: FERRO-TIME325 MG PO (11:43)
--- NOTE | 2018-12-22 16:00 | NUR ---
Changed mepilex dressings to right vazquez and coccyx prior to discharge. Rt vazquez wound has closed with 1x2cm dry scab. Applied new 4x4 mepilex and dated. Coccyx dressing removed, no drainage on old foam. Left coccyx old, ruptured blisters with yellow flaky superficial covering. All areas to coccyx blanchable. Showed daughter this and how to apply new petal mepilex. Provided pt with one of each mepilexs. Home health to follow. Pt's home O2 machine delivered prior to discharge. Printed pt health summary, discharge summary, last doses of home med list (copy of this to chart with written corrections) and reviewed with pt and daughter. Circled on paperwork the prescriptions to be picked up at pt's pharmacy. Stressed importance of follow up appointments with ortho and PCP, as well as no smoking! Also d/t pt now having O2 at home, informed of risks. Belongings gathered by staff and family, including O2, dentures and partial in place, glasses, air mattress, clothing, hip tool kit, brace in place. Pt transferred via wheelchair by SHAYY Ponce for ride home with daughter. Pt and daughter denied any questions.
--- NOTE | 2018-12-22 16:14 | NUR ---
Reviewed discharge instructions. Pt left with SHAYY Ponce
== END 2018-12-22 16:00 | disposition home health service (06) | DRG 559 ==
PROVIDERS: ADMIT Internal Medicine
DX: S72.141D Displaced intertrochanteric fracture of right femur, subsequent encounter for closed fracture with routine healing (principal); J96.01 Acute respiratory failure with hypoxia; E43 Unspecified severe protein-calorie malnutrition; N39.0 Urinary tract infection, site not specified; Z68.1 Body mass index [BMI] 19.9 or less, adult; S52.021D Displaced fracture of olecranon process without intraarticular extension of right ulna, subsequent encounter for closed fracture with routine healing; W01.0XXD Fall on same level from slipping, tripping and stumbling without subsequent striking against object, subsequent encounter; J44.9 Chronic obstructive pulmonary disease, unspecified; B96.20 Unspecified Escherichia coli [E. coli] as the cause of diseases classified elsewhere; I48.91 Unspecified atrial fibrillation; F17.210 Nicotine dependence, cigarettes, uncomplicated; D50.0 Iron deficiency anemia secondary to blood loss (chronic); F32.9 Major depressive disorder, single episode, unspecified
CPT/HCPCS: 99222-AI; 99231-AI; 99232-AI; 99233-AI; 99239

== ENCOUNTER 2020-03-17 11:35 | Inpatient (IN) | payer MEDICARE, BC ==
[~2020-03-17] VITALS: Ht 165.1 cm; Wt 43.5 kg
[~2020-03-17 11:35] MED LIST changes: -B-12 100 MCG PO; +ENSURE 237 ML237 ML PO; +FERRO-TIME325 MG PO; +PROAIR HFA0.09 MG/AC IH; +TOPROL XL 25MG25 MG PO; +VITAMIN B12 1541 TAB PO
[2020-03-17] MEDS ORDERED: OMNICEF 300MG300 MG PO (14:50)
[2020-03-17] MEDS ORDERED: IPRATROPIUM BROM3 M1 IH ×2 (14:51)
[2020-03-17] MEDS ORDERED: ASPI325T6 PO (14:51)
[2020-03-17] MEDS ORDERED: TYLENOL 325MG325 MG PO (14:53)
[2020-03-17] MEDS ORDERED: PREDNISONE20 MG PO (14:54)
[2020-03-17] MEDS ORDERED: VITAMIN C500 MG PO (14:54)
[2020-03-17] MEDS ORDERED: DUO-KAPS1 CAP PO (14:54)
[2020-03-17] MEDS ORDERED: OSCAL 500 TAB500 MG PO (14:54)
[2020-03-17] MEDS ORDERED: LASIX 20MG TABL20 MG PO (14:57)
--- NOTE | 2020-03-17 17:53 | NUR ---
Patient transfered to [facility] status. Notified Dr. Fraire of time of admission. Orders entered. Patient has done well throughout the day. x2 Assist to restroom. Tedhose maintained to BLE. Has been up in recliner throughout the day. Denies further needs at this time. Will report off to night clerk.
--- NOTE | 2020-03-17 18:45 | NUR ---
Patient has done well throughout the day. Has been up to recliner for all meals. Continues to deny pain. Tedhose and SCDs to BLE. Denies further needs at this time. Will report off to film processing shift supervisor.
--- NOTE | 2020-03-17 19:55 | NUR ---
At time of assessment, patient is awake in bed. She is alert and oriented, heart sounds are normal/regular, lung sounds are clear, she does not complain of any pain. No edema is present. Will continue to monitor.
[2020-03-17 20:38] VITALS: BP 107/64; PULSE 82; TEMP 97.5
--- NOTE | 2020-03-18 04:52 | NUR ---
Patient has had an uneventful night. After her evening medications, she has slept soundly throughout the night and has not had one request. Will continue to monitor.
[2020-03-18 05:16] VITALS: BP 132/82; PULSE 84; TEMP 97.9
--- NOTE | 2020-03-18 10:03 | NUR ---
Roll Slicing Machine Tender met with patient to complete initial intake as she is new to [facility]. Patient lives alone in [place] and has three children, which she reports are all DPOA-HC. Patient states each child should have a copy of paperwork. Jo (ph#[phone]), Anatoliy (ph#[phone]), and Evan (ph#[phone]). Patient sees Dr. Rogers for primary care and patient obtains medications from [facility] with no difficulties. Patient has a walker, wheelchair, and a couple of canes. Patient advised she lives in a home with stairs but does not go upstairs or down to the basement. Patient reports if she needs something from upstairs or downstairs, her family assists her. Patient reports that she was independent with ADLS prior to hospital stay. SW to continue to follow.
--- NOTE | 2020-03-18 11:17 | NUR ---
First visit from the patient access manager. No needs right now.
[2020-03-18 16:43] VITALS: BP 94/73; PULSE 76; TEMP 98.2
--- NOTE | 2020-03-18 18:00 | NUR ---
Patient did well today. She was moving better today. Minimal complaints of pain. No complaints of nausea. She was a one assist to the BSC this afternoon with a walker. She needs a lot of reminders on walker use. No other changes at this time. Call light within reach.
--- NOTE | 2020-03-18 20:00 | NUR ---
D/C SALINE LOCK, NO IV MEDS ORDERS, ON ORAL ABX. AGREED TO TAKE TYLENOL FOR COMFORT AT HS. BED ALARM ON. DENIES ANY OTHER NEEDS CURRENTLY.
--- NOTE | 2020-03-19 00:11 | NUR ---
PATIENT SLEEPING, DOES NOT AWAKEN WHEN ROOM ENTERED BY STAFF, BED ALARM ON. BREATHING OBSERVED EVEN/NONLABORED.
--- NOTE | 2020-03-19 02:18 | NUR ---
PATIENT SLEEPING, DOES NOT AWAKEN WHEN ROOM ENTERED BY STAFF. BREATHING OBSERVED SERVED EVEN AND NONLABORED WITH OXYGEN PER NC TO GUY NARES. BED ALARM ON.
[2020-03-19 05:36] VITALS: BP 126/68; PULSE 64; TEMP 98.1
--- NOTE | 2020-03-19 07:37 | NUR ---
PATIENT RESTING IN BED DURING CHANGE OF SHIFT REPORT GIVEN TO DAY SHIFT NURSEMANOJ. BED ALARM ON.
--- NOTE | 2020-03-19 09:07 | NUR ---
Pt awake and alert upon entry, has some C/O pain at this time, medications given for relief. Shift assessments complete, Phy Therapy in room.
--- NOTE | 2020-03-19 09:40 | NUR ---
PT NOT AVAILABLE
--- NOTE | 2020-03-19 15:35 | NUR ---
Patient arrived to [facility] and is currently resting in bed with alarm set. Patient denies questions at this time. Elisabet Henning visited with patient and helped her get settled in to her new room. Will continue to monitor.
--- NOTE | 2020-03-19 16:09 | NUR ---
Polymer Specialist met with patient to review and provide copy of team conference notes. SW reviewed potential need for home oxygen. Patient reports she used to have home oxygen set up through [facility], but returned the equipment. SW advised that she can assist patient in setting up home oxygen again if needed. Patient states she plans to return home upon discharge and that her daughter Jo will stay with her. SW contacted patient's daughter, Jo who reports this is what they did last time patient discharged from [facility] and it did not go well. Jo has concerns about patient returning home upon discharge and is interested in Assisted Living for patient. Jo also states that she encouraged patient to not return oxygen supplies to [facility] but that patient did so anyway. SW contacted patient's son, Anatoliy also to provide update. Anatoliy shares Jo's concerns about patient returning home upon discharge. Anatoliy states that patient is in a "stubborn phase" right now. SW to continue to follow to ensure safe discharge. LEONIE provided new room number to both Anatoliy and Jo.
[2020-03-19 17:42] VITALS: BP 91/72; PULSE 88; TEMP 98.1
--- NOTE | 2020-03-19 19:30 | NUR ---
PATIENT RESTING IN BED DURING CHANGE OF SHIFT REPORT FROM DAY SHIFT NURSEMIGUEL. PATIENT WITH NO NEEDS REPORTED. BED ALARM ON. OXYGEN CONTINUES PER NC.
--- NOTE | 2020-03-19 20:13 | NUR ---
Patient resting in bed, call light in reach and alarm set. Patient was able to talk to family via phone this evening. Tolerated diet well, denied questions. Reported off to night nurse.
--- NOTE | 2020-03-19 22:01 | NUR ---
PT REFUSED CPAP
[2020-03-20 00:36] VITALS: BP 103/58; PULSE 89; TEMP 97.7
--- NOTE | 2020-03-20 01:30 | NUR ---
PATIENT SLEEPING, DOES NOT AWAKEN WHEN ROOM ENTERED BY STAFF. OBSERVED BREATHING NONLABORED AND EVEN. BED ALARM ON. OXYGEN CONTINUES PER NC.
[2020-03-20 05:53] VITALS: BP 150/77; PULSE 65; TEMP 98
--- NOTE | 2020-03-20 07:13 | NUR ---
PATIENT RESTING IN BED DURING CHANGE OF SHIFT REPORT GIVEN TO DAY SHIFT NURSEFRANCISCO. BED ALARM ON. OXYGEN CONTINUES PER NC.
--- NOTE | 2020-03-20 09:26 | NUR ---
PT UP TO CHAIR FOR BREAKFAST. OUT WITH THERAPY PER PROTOCOLS. PT DENIES NEEDS OR PAIN AT THIS TIME.
[2020-03-20 18:06] VITALS: BP 99/65; PULSE 79; TEMP 98.2
--- NOTE | 2020-03-20 20:00 | NUR ---
At time of assessment, patient is up to the bathroom with nurses aid. She uses walker and gaitbelt to ambulate. She has a slow gait and need cuing to use the walker correctly, but she tolerates ambulation with assistance fine. She does not complain of any pain at this time. Her heart sounds are normal/regular and lungs are clear. She is on 2L oxgyen and only becomes slightly SOA with exertion. She is alert and oriented and [place]. No concerns at this time. Will continue to monitor.
[2020-03-21 06:12] VITALS: BP 131/97; PULSE 73; TEMP 98.1
[2020-03-21 06:45] LABS: BASO % 0.2 % (0.0-2.0); EOS # 0.2 (0.0-0.7); EOS % 1.5 % (0-4.0); GRAN # 7.8 (1.4-6.5); GRAN % 66.6 % (42.2-75.2); HEMOGLOBIN 11.6 g/dl (12.5-16.0); LYMPH # 2.6 (1.2-3.4); MEAN CELL VOLUME 99 fl (80.0-100.0); MEAN CORPUSCULAR HEMOGLOBIN 33 pg (27.0-31.0); MEAN CORPUSCULAR HGB CONC 33 g/dl (33.0-37.0); MEAN PLATELET VOLUME 10.7 fl (7.4-10.4); MONO % 8.6 % (1.7-9.3); PLATELET COUNT 339 K/mm3 (130-400); RED BLOOD COUNT 3.54 M/mm3 (4.10-5.30)
[2020-03-21 06:54] LABS: CALCIUM 9.1 mg/dL (8.4-10.2); CREATININE, serum 0.54 (0.52-1.25); POTASSIUM 4.3 mmol/L (3.4-5.0)
--- NOTE | 2020-03-21 09:15 | NUR ---
ADRI note: PT AOX4. states no pain at rest. started PT and pain to lt hip increased to 8/10 aching and had to stop momentarily to rest. PRN norco given. LCTA. on 2L NC at rest and 3 with activity. denies N/V, CP, JACKSON.
--- NOTE | 2020-03-21 13:24 | NUR ---
Admission QIM scores were reviewed by the team. Code of 5 for eating was determined by team discussion to be the most usual performance before interventions for this patient during the assessment period. Code of 2 chosen for toileting hygiene was determined by team discussion to be the most usual performance before interventions for this patient during the assessment period. Code of 1 chosen for toileting transfers was determined by team discussion to be the most usual performance for this patient during the assessment period. Code of 2 chosen for lying to sitting on side of bed was determined by team discussion to be the most usual performance for this patient during the assessment period. Code of 2 chosen for sit to stand was determined by team discussion to be the most usual performance for this patient during the assessment period. Code of 2 chosen for chair/bed to chair transfers was determined by team discussion to be the most usual performance for this patient during the assessment period.--Elisabet Camara,
--- NOTE | 2020-03-21 14:41 | NUR ---
Ledger Poster followed up with patient before the weekend. Patient states she is feeling better and well rested. Patient denies having any questions or concerns prior to the weekend. SW to continue to follow.
[2020-03-21 18:28] VITALS: BP 101/57; PULSE 90; TEMP 98.1
--- NOTE | 2020-03-21 19:00 | NUR ---
SHIFT REPORT FROM IRIS Henning RN.
--- NOTE | 2020-03-21 21:30 | NUR ---
PT RESTING IN BED. O2 2L NC. A&OX4. PLEASANT AND COOPERATIVE. LT HIP INCISIONS HEALING. NO DRG NOTED. DENIES NEED FOR PAIN MED. CALL LIGHT IN REACH. BED ALARM SET.
--- NOTE | 2020-03-21 23:47 | NUR ---
PT AWAKE. CHANGED LT HIP DRESSINGS X3 WITH GAUZE/TEGADERM. INCISIONS HEALING WELL. NO DRAINAGE OR BRUISING. CHECKED PULLS UPS FOR DRYNESS. NO INCONT. DENIES NEED TO VOID. NO SKIN ISSUES TO BUTTOCKS. PT ABLE TO ASSIST IN TURNING SIDE TO SIDE. MORE GUARDED ON LT. SERGIO WELL.
[2020-03-22 04:54] VITALS: BP 110/67; PULSE 83; TEMP 98.3
--- NOTE | 2020-03-22 05:39 | NUR ---
[employer]ORAGE [employer] ARCHITECT AMB PT TO BR. VERY UNSTEADY GAIT. VOIDED. BACK TO BED. DENIES NEED FOR PAIN MEDICATION.
--- NOTE | 2020-03-22 06:15 | NUR ---
PT HAS RESTED WELL THIS SHIFT. UNEVENTFUL. O2 CONTINUES AT 2L NC.
--- NOTE | 2020-03-22 08:07 | NUR ---
ARDI NOTE: PT AOX4, DENIES PAIN. PROPHYLACTIVC TYLENOL GIVEN X1 BEFORE THERAPY DUE TO INCREASED PAIN WITH AMBULATION YESTERDAY. LT HIP SITE TRACE NON-PITTING EDEMA. DRESSING CHANGED LAST HS. C/D/I, NO S/S INFECTION. ON 1L NC. DENIES SOB, CP, N/V.
[2020-03-22 17:42] VITALS: BP 111/68; PULSE 78; TEMP 98.1
--- NOTE | 2020-03-22 19:59 | NUR ---
PT IN BED WITH HOB ELEVATED TO 45 DEGREE ANGLE, DENIES PAIN OR DISCOMFORT. NO NEEDS AT THIS TIME, CALL LIGHT WITHIN REACH.
--- NOTE | 2020-03-23 04:50 | NUR ---
PT SLEEPING WELL WITH HOB ELEVATED TO 30 DEGREE ANGLE. NO S/S OF PAIN OR DISCOMFORT, RESP EVEN AND UNLABORED. CALL LIGHT WITHIN REACH AND BED ALARM ON.
[2020-03-23 05:24] VITALS: BP 122/74; PULSE 82; TEMP 97.5
[2020-03-23 16:03] VITALS: BP 106/85; PULSE 81; TEMP 97.8
--- NOTE | 2020-03-23 18:00 | NUR ---
Patient has been doing well today. She got up a few times to the BSC, she did not want to sit up in the chair today. She needs a lot of reminders to use the walker correctly. She is able to get up out bed well, needs minimal assist with her legs. She does better getting back into bed with the walker and getting legs back in the bed. No complaints of pain. No complaints of nausea. No other changes at this time. Call light within reach.
--- NOTE | 2020-03-23 19:31 | NUR ---
PATIENT RESTING IN BED DURING CHANGE OF SHIFT REPORT FROM DAY SHIFT NURSEKRUNAL. BED ALARM ON.
--- NOTE | 2020-03-23 20:00 | NUR ---
ABLE TO TAKE FEW STEPS WITH TRANSFERS FROM BED TO BSC FOR HS ACTIVITIES DUE TO PATIENT REPETITIVE CUES TO USE PROPER WALKER/GAIT/PIVOT TRANSFERS.
--- NOTE | 2020-03-24 00:18 | NUR ---
PATIENT SLEEPING, DOES NOT AWAKEN WHEN ROOM ENTERED BY STAFF. BREATHING OBSERVED NONLABORED AND EVEN. BED ALARM ON.
--- NOTE | 2020-03-24 04:00 | NUR ---
PATIENT SLEEPING, DOES NOT AWAKEN WHEN ROOM ENTERED BY STAFF, OBSERVED BREATHING NONLABORED AND EVEN, OXYGEN CONTINUES PER NC. BED ALARM ON.
[2020-03-24 06:28] VITALS: BP 115/63; PULSE 73; TEMP 98.3
--- NOTE | 2020-03-24 07:30 | NUR ---
PATIENT IN BED EATING BREAKFAST DURING CHANGE OF SHIFT REPORT GIVEN TO DAY SHIFT NURSE BED ALARM ON.
--- NOTE | 2020-03-24 09:14 | NUR ---
PT REPORTING PAIN 8/10 IN LEFT HIP. LUZMA, PHYSICAL THERAPIST, NOTIFED ME OF POPPING NOISE IN PT'S LEFT HIP WHEN AMBULATING. PT STATED SHE WAS NOT IN ANY PAIN FROM IT, CAMRON ENCARNACION NOTIFIED. PT NOT AMBULATING FAR, SAFETY CUES REQUIRED (PT PULLED HER PANTS DOWN BEFORE TURNING TO SIT ON SHOWER CHAIR). NO OTHER NEEDS AT THIS TIME.
--- NOTE | 2020-03-24 10:36 | NUR ---
DRESSING CHANGED TO L HIP.
--- NOTE | 2020-03-24 14:19 | NUR ---
Teacher Aide Clerical met with patient to follow up from the weekend. Patient states the weekend was relaxing and she feels well rested. SW spoke with patient about setting up home oxygen upon discharge. Patient is agreeable to use [facility] again but would like a portable concentrator. SW advised that she can let [facility] know but that she may not be able to get one right away. SW to continue to follow.
--- NOTE | 2020-03-24 14:40 | NUR ---
PT PIVOTED TO BEDSIDE COMMODE. PT NOT WANTING TO PLACE WEIGHT ON LEFT LEG. PT UNABLE TO PULL PANTS DOWN HERSELF. PT DID ATTEMPT TO PULL PANTS UP BUT UNABLE TO GET PANTS OVER BRIEF. PT ABLE TO WIPE HERSELF. PT TRANSFERRED BACK INTO BED, PT PULLED UP IN BED AND BLANKETS PULLED UP. NO OTHER NEEDS AT THIS TIME.
--- NOTE | 2020-03-24 15:31 | NUR ---
XRAY PERFORMED TO ASSESS CAUSE OF "POPPING" NOISE UPON AMBULATION. ALYSHA LYON INFORMED ME THAT ORTHO REVIEWED THE XRAY AND NO CHANGES HAVE OCCURED AND TO CONTINUE THERAPIES IS.
--- NOTE | 2020-03-24 15:52 | NUR ---
PT DINNER ORDER CALLED DOWN TO KITCHEN.
[2020-03-24 16:52] VITALS: BP 113/37; PULSE 80; TEMP 98.4
--- NOTE | 2020-03-24 17:17 | NUR ---
PT L HIP NOT CAUSING PAIN UNLESS PT IS WALKING ON IT. DURING AMBULATION PT AND PHYSICAL THERAPY NOTICED A POPPING SOUND ON HIP, XRAY PERFORMED DID NOT SHOW ANY CHANGES, THERAPY TO CONTINUE NORMAL. OVERALL UNEVENTFUL SHIFT, DRESSING CHANGED ON HIP AND THIGH X3, NEXT DUE DRESSING CHANGE 03/27/2020. NO OTHER NEEDS AT THIS TIME.
--- NOTE | 2020-03-24 18:50 | NUR ---
PT REPORT RECEIVED FROM BEBE MCCURDY AT BEDSIDE. THIS AUTOMOBILE BODY REPAIRER ASSISTS PT TO BEDSIDE COMMODE TO VOID. PT IS NOTED TO REQUIRE THIS WRITERS ASSISTANCE TO COME TO A SAFE, FULLY SITTING POSITION, ON THE BEDSIDE WELL REQUIRING STANDBY ASSISTANCE TO COME TO A STANDING POSITION, PULL HER CLOTHING DOWN, AND PIVOT TRANSFER TO THE COMMODE. PT HAD DRESSINGS ON HER LEFT HIP AND THIGH CHANGED EARLIER TODAY BUT THE DRESSING ON THE LATERAL HIP IS BEGINNING TO FALL OFF, MOST LIKELY DUE TO THE FRICTION OF PT PANTS/UNDERGARMENTS BEING MOVED UP/DOWN FOR TOILETING. INCISION APPEARS TO BE CLEAN,DRY, AND WELL APPROXIMATED. PT RETURNS TO BED AFTER VOIDING, HAS CALL LIGHT WITHIN REACH. WILL CONTINUE TO MONITOR.
--- NOTE | 2020-03-24 22:56 | NUR ---
PT HAS BEEN RESTING PEACEFULLY IN BED SINCE SHIFT REPORT. DRESSING TO HER LEFT LATERAL HIP WAS CHANGED AT [place] WITH NEW GUAZE PLACED OVER CLOSED WOUND AND SECURED WITH NEW TEGADERM. PT REQUIRED ASSISTANCE TO TURN TO HER SIDE FOR DRESSING CHANGE WELL TO BRING HER LEFT LEG BACK INTO AN ANATOMICAL CORRECT POSITION FOR SAFETY AND COMFORT. PT HAS BEEN COOPERATIVE WITH CARE AND COMPLIANT WITH MEDICATION REGIMEN. PT REQUIRES CUING WITH ACTIVITY SUCH TRANSFERS AND TURNING IN BED, AND AT TIMES REQUIRES CUING THAN AT OTHER TIMES. PT IS NOTED TO TAKE SMALL, SLOW, PURPOSEFUL STEPS AND WANTS TO AVOID PUTTING PRESSURE ON HER LEFT L.E. PT STATES THAT SHE DOES NOT REQUIRE PAIN MEDICATION OR INTERVENTIONS SO FAR THIS SHIFT. CALL LIGHT REMAINS AT HER SIDE, BEDSIDE TABLE HAS BEVERAGES AND PERSONAL BELONGINGS WITHIN REACH. WILL CONTINUE TO MONITOR. NO S/S OF DISTRESS NOTED.
--- NOTE | 2020-03-25 02:31 | NUR ---
PT INFORMED STAFF THAT SHE NEEDED TO USE THE RESTROOM. PT WAS ASSISTED TO BEDSIDE COMMODE AND REQUIRED MULTIPLE CUES AND REDIRECTIONS TO SAFELY PERFORM TASK. PT WAS NOTED TO VOID A CLEAR LIGHT JESUS ALBERTO URINE. PT ASSISTED BACK TO BED AFTER VOIDING. PT REQUIRES ASSISTANCE TO MOVE AND POSITION HER LEFT LEG PRIOR TO AND AFTER TRANSFERS. PT ALSO REQUIRED VERBAL CUES ON HOW TO SAFELY PIVOT ONTO THE COMMODE. PT WANTS TO GRAB ONTO THIS PREPARATION OPERATOR INSTEAD OF USING HER ARMS TO PUSH HERSELF TO A STANDING POSITION, HOWEVER WHEN REDIRECTED AND ENCOURAGED PT DOES PUT HER HANDS IN A SAFE, APPROPRIATE PLACE AND ASSIST WITH TRANSFERING TO A STANDING POSITION. PT REQUIRES TOTAL ASSISTANCE TO PULL DOWN AND PULL BACK UP HER ADULT BRIEFS AND PANTS. THIS MAY BE PARTLY CAUSED BY THE FACT THAT PT IS WEARING PANTS THAT FIT SNUGLY AT THE WAIST. IT IS THIS PREPARATION OPERATOR'S OPINION THAT THIS IS ALSO WHY HER LEFT HIP DRESSING CAME OFF EARLIER TODAY AFTER IT WAS CHANGED. CALL LIGHT IS AT PT SIDE. NO S/S OF DISTRESS NOTED. WILL CONTINUE TO MONITOR.
[2020-03-25 06:20] VITALS: BP 124/72; PULSE 71; TEMP 98
--- NOTE | 2020-03-25 06:26 | NUR ---
PT WAS RESTING IN BED WITH EYES CLOSED AND WHEN THIS GROCERY MANAGER ENTERED ROOM PT OPENED EYES AND REPORTED THAT SHE SLEPT WELL DURING THE SHIFT. PT HAS REMAINED IN STABLE CONDITION WITH NO S/S OF DISTRESS NOTED. CALL LIGHT IS AT PT SIDE. WILL CONTINUE TO MONITOR.
--- NOTE | 2020-03-25 08:00 | NUR ---
Patient taken by wheelchair for PT. No further needs expressed from patient
--- NOTE | 2020-03-25 09:15 | NUR ---
Assessment complete. Patient A&Ox3. VSS. Reporting no pain when not moving, 8/10 when moving/putting weight and pressure on left hip. PT at the bedside with patient and assisting into wheelchair for therapy. Left hip site CDI gauze and tegederm. Patient brief dry. Patient needing cueing to assist with getting out of bed and walking with walker to wheelchair. Patient still has complaints of a "poping" sound from hip. Fall precautions in place. No further needs expressed from patient. Call light within reach. Chair alarm on
[2020-03-25 11:25] VITALS: BP 122/71; PULSE 75; TEMP 97.7
[2020-03-25 15:09] VITALS: BP 98/59; PULSE 80; TEMP 97.5
--- NOTE | 2020-03-25 17:44 | NUR ---
Patient finished eating dinner. Tolerated OT, ST, and PT. Has had complaints of pain and audible "popping" noise from left hip. ALYSHA Friedman aware. Nurse has been encouraging patient to ambulate to the bathroom. VSS 2L NC O2. No reported SOB. No further needs expressed from the patient. Call light within reach. Bed alarm on and fall precautions in place.
--- NOTE | 2020-03-25 19:30 | NUR ---
PATIENT RESTING IN BED DURING CHANGE OF SHIFT REPORT FROM DAY SHIFT NURSEROMMEL. BED ALARM ON. OXYGEN CONTINUES PER NC, WHICH PATIENT TAKES OFF WHEN AMB TO BATHROOM.
--- NOTE | 2020-03-26 | NUR ---
PATIENT SLEEPING, DOES NOT AWAKEN WHEN ROOM ENTERED BY STAFF, OBSERVED BREATHING NONLABORED AND EVEN. BED ALARM ON.
[2020-03-26 04:45] VITALS: BP 120/74; PULSE 69; TEMP 97.8
--- NOTE | 2020-03-26 07:30 | NUR ---
PATIENT RESTING IN BED DURING CHANGE OF SHIFT REPORT GIVEN TO DAY SHIFT NURSEDELMA. BED ALARM ON.
[2020-03-26 08:00] VITALS: BP 108/71
[2020-03-26 14:55] VITALS: BP 108/59; PULSE 79
--- NOTE | 2020-03-26 15:52 | NUR ---
Patient is alert, oriented. pain at 5/10 this morning. Tamiment was administered. pt tolerated therapy sections well. Lasix 20mg was initially held this morning because pt blood pressure was 108/71, rechecked in the afternoon after all therapy was completed. BP still at 108/59, laxis was administered. Vitals rechecked 1 hr later 111/65. oil was applied to dry skin for hydration. surgical incision on left hip is dry, intact, no redness.
--- NOTE | 2020-03-26 16:36 | NUR ---
Sheriff'S Officer met with patient to review and provide copy of team notes. SW advised discharge has been set for Tuesday and patient is agreeable to this. SW reviewed recommendation for Home Health and provided list of HH agencies that serve [place]. Patient would like time to review the list so SW will follow up on choice. LEONIE discussed scheduling a family meeting with patient's children for tomorrow at 1300 and patient states this would be fine. LEONIE contacted patient's daughter, Jo who is agreeable to date and time of family meeting. LEONIE reviewed recommendation for 24 hour care and Jo reports SW will need to discuss this with Anatoliy. Jo feels that patient would be better suited for assisted living at this time. LEONIE contacted Anatoliy who is also agreeable to date and time of family meeting. Anatoliy reports Jo doesn't work so it would have to be her staying with patient and that ultimately it would be up to her. LEONIE discussed HH recommendation with Anatoliy along with private duty resources. LEONIE provided date and time of team conference to Elisabet IPR Director. SW to continue to follow.
--- NOTE | 2020-03-27 05:51 | NUR ---
PATIENT HAS BEEN RESTING THROUGH THE NIGHT WITH NO COMPLAINTS. WILL REPORT OFF TO DAY SHIFT UPON THEIR ARRIVAL
[2020-03-27 06:24] VITALS: BP 125/72; PULSE 73; TEMP 98
--- NOTE | 2020-03-27 09:44 | NUR ---
Patient resting in bed, call light in reach and bed alarm set. Patient receiving PT at this time. Patient denies pain at this time.
--- NOTE | 2020-03-27 13:35 | NUR ---
PATIENT DOES NOT NEED OXYGEN AT REAT. SHE WILL NEED 2 LITERS OF OXYDGEN DURING EXERTION.
--- NOTE | 2020-03-27 14:32 | NUR ---
Call placed to Dr. Taylor's office - left message for nurse to return my call.
--- NOTE | 2020-03-27 14:42 | NUR ---
LEONIE contacted and faxed the patient's oxygen order to [facility].
--- NOTE | 2020-03-27 14:47 | NUR ---
Call placed to Dr. Rogers's office to set up follow up PCP appointment. Awaiting a return call. Call placed to Dr. Taylor's office for follow up with pulmonology appointment set for April 17, 2020 at 11:30 AM. Patient information was sent to that office .
--- NOTE | 2020-03-27 15:00 | NUR ---
Left hip incision bandage was removed and no drainage or redness was observed to that area. Area was scabbed over nicely. Area was left open to air. Patient's bottom continues to have some redness, but is blanchable and mepilex bandage was secured to that area. Will continue to monitor.
--- NOTE | 2020-03-27 15:32 | NUR ---
Hose Inspector called in to participate in patient's family meeting which was lead by Elisabet, [facility] Director. Also involved in the meeting was PT/OT/ST, patient's daughter Jo and patient's son Anatoliy. Elisabet opened the meeting followed by progress reports given by PT/OT/ST. Recommendations is for home with home health and 24 hour supervision. Jo advised she will be staying with patient for at least the first couple weeks. LEONIE followed up with patient who would like to use [facility] as that is who she used last year. LEONIE contacted Ami at [facility] and faxed referral. LEONIE contacted Jo to provide update. LEONIE Bautista faxed order for home oxygen to [facility]. SW to continue to follow.
[2020-03-27 15:47] VITALS: BP 110/59; PULSE 83; TEMP 98
--- NOTE | 2020-03-27 21:00 | NUR ---
Received report from CALLI Barnett. Alert and oriented. Pt sleeping upon entry but easily awakened. Denies any pain or discomfort. Meds administered as ordered. Needs met. Call light within reach.
--- NOTE | 2020-03-28 03:26 | NUR ---
PATIENT DID NOT WANT TO BE AWAKENED FOR TREATMENT
[2020-03-28 05:30] VITALS: BP 131/79; PULSE 86; TEMP 97.4
--- NOTE | 2020-03-28 08:32 | NUR ---
Patient resting in bed at this time, call light in reach and bed alarm is set. Patient will be discharging today. She denies any questions at this time.
--- NOTE | 2020-03-28 10:29 | NUR ---
Ami, at [facility], reports that they are able to accept the patient for services. LEONIE followed up with Shavonne at [facility] about the oxygen. Shavonne reports that they did not receive the fax. LEONIE re-faxed the oxygen order. Awaiting delivery of oxygen. LEONIE contacted and updated the patient's daughter, Jo. SW updated the patient and read the IM form outloud to the patient. The patient verbalized understanding and gave SW approval to sign the form on her behalf. The patient was provided with a copy. The patient is to discharge back home today, 03/28, with home health services for PT/OT/SN from [facility] and around the clock care from her daughter (Jo). LEONIE faxed discharge orders to Ami at [facility]. No additional needs at this time.
--- NOTE | 2020-03-28 12:00 | NUR ---
Patient's bottom has some light pinkness to area, is blanchable and area was secured with mepilex. Patient denies any pain to that area. Will continue to monitor.
--- NOTE | 2020-03-28 15:31 | NUR ---
Patient Health Summary, Discharge Summary, and Home meds printed and reviewed with patient's daughter and son. Stressed importance of follow up appointments. Belongings gathered by SHAYY/Kris. Patient transported via wheelchair by CALLI/Ericka and seatbelted for ride home. Kris/SHAYY brought down patient's belongings for patient's family to load in truck. Patient, daughter and son denied any questions.
== END 2020-03-28 15:30 | disposition home health service (06) | DRG 560 ==
LOC: MEDICAL 16:52
PROVIDERS: ADMIT Internal Medicine
DX: S72.142D Displaced intertrochanteric fracture of left femur, subsequent encounter for closed fracture with routine healing (principal); N39.0 Urinary tract infection, site not specified; J44.9 Chronic obstructive pulmonary disease, unspecified; D64.9 Anemia, unspecified; R09.02 Hypoxemia; R91.8 Other nonspecific abnormal finding of lung field; W19.XXXD Unspecified fall, subsequent encounter; Z79.82 Long term (current) use of aspirin; Z79.52 Long term (current) use of systemic steroids; Z87.891 Personal history of nicotine dependence; Z90.710 Acquired absence of both cervix and uterus; Z88.0 Allergy status to penicillin
CPT/HCPCS: 99222-AI; 99231-AI; 99232-AI; 99239; J7512

== ENCOUNTER 2020-04-10 06:39 | Observation (INO) | payer MEDICARE, BC ==
[2020-04-10] VITALS (17 sets, daily range): BP systolic 92–122; BP diastolic 62–79; PULSE 65–87; TEMP 97.6–98.2
[~2020-04-10] VITALS: Ht 152.4 cm; Wt 34.4 kg
[~2020-04-10 06:39] MED LIST changes: +ASPIRIN E.C. 8181 MG PO; +B-12 500 MCG PO; +CALCIUM 600600 M2 PO; +DUO-KAPS1 CAP PO; +FOSAMAX 70MG TA70 MG PO; +LASIX 20MG TABL20 MG PO; +MULTIPLE VITAMI1 CAP PO; +NATURAL VITAM1000 MG PO; +OMNICEF 300MG300 MG PO; +OSCAL 500 TAB500 MG PO; +PREDNISONE20 MG PO; +TUMS ULTRA1000 MG PO; +VENTOLIN0.09 MG IH; +VITAMIN C500 MG PO; +VITAMIN D3400 I1 PO
--- NOTE | 2020-04-10 09:35 | NUR ---
1033 HOUSE SUPERVISIOR CALLED. NEED ROOM ON THE FLOOR 1035 CHEST TUBE PLACED. HOUSE CALLED WITH ROOM [phone] CXR DONE 1050 REPORT TO KRUNAL.
--- NOTE | 2020-04-10 09:40 | NUR ---
PT WAS TAKEN VIA WHEELCHAIR TO CT AND PLACED INTO POSITION. MONITORING EQUIPMENT WAS PLACED AND IMAGES TAKEN/SENT
--- NOTE | 2020-04-10 12:30 | NUR ---
Patient is setteled in her room. She is alert and oriented. Explained the plan of care for her. She denies pain and nausea. Dressing to chest tube is C/D/I. Patient was recently here so she is familiar with how the call lights work. No other changes at this time. Call light within reach. Bed alarm on.
--- NOTE | 2020-04-10 19:17 | NUR ---
Patient resting in bed, watching TV during change of shift report from day shift nurseVivian. Denies any needs during report.
--- NOTE | 2020-04-11 02:51 | NUR ---
PATIENT SLEEPING IN BED, DOES NOT AWAKEN WHEN DOOR TO ROOM IS OPENED BY STAFF. OBSERVED BREATHING NONLABORED AND EVEN. OXYGEN CONTINUES PER NASAL CANNULA.
[2020-04-11 03:44] VITALS: BP 112/70; PULSE 74; TEMP 97.7
--- NOTE | 2020-04-11 07:30 | NUR ---
PATIENT EATING BREAKFAST IN BED DURING CHANGE OF SHIFT REPORT GIVEN TO DAY SHIFT NURSE, JUAN MANUEL. OXYGEN CONTINUES, HEIMLICH VALVE IN PLACE TO DD. DENIES ANY NEEDS CURRENTLY.
[2020-04-11 07:38] LABS: BASO % 0.7 % (0.0-2.0); EOS # 0.2 (0.0-0.7); EOS % 2.5 % (0-4.0); GRAN # 3.6 (1.4-6.5); GRAN % 61.6 % (42.2-75.2); HEMATOCRIT 37.6 % (37.0-47.0); HEMOGLOBIN 11.8 g/dl (12.5-16.0); LYMPH # 1.6 (1.2-3.4); LYMPH % 26.4 % (20.0-51.0); MEAN CELL VOLUME 100 fl (80.0-100.0); MEAN CORPUSCULAR HEMOGLOBIN 31 pg (27.0-31.0); MEAN CORPUSCULAR HGB CONC 31 g/dl (33.0-37.0); MEAN PLATELET VOLUME 9.9 fl (7.4-10.4); MONO # 0.5 (0.1-0.6); MONO % 8.6 % (1.7-9.3); PLATELET COUNT 320 K/mm3 (130-400); RED BLOOD COUNT 3.78 M/mm3 (4.10-5.30); REDCELL DISTRIBUTION WIDTH-CV 13.3 % (11.5-14.5)
[2020-04-11 07:39] LABS: CALCIUM 8.7 mg/dL (8.4-10.2); CREATININE, serum 0.45 (0.52-1.25); POTASSIUM 4.3 mmol/L (3.4-5.0)
--- NOTE | 2020-04-11 08:30 | NUR ---
Patient alert and oriented, answers questions appropriately. See assessment. Heimlich valve to right chest wall to dependent drainage with dressing clean, dry and intact. Lungs CTA. Respers even and unlabored. VSS. Oxygen 2l/nc per home oxygen needs. No c/o at this time.
[2020-04-11 08:42] VITALS: BP 126/90; PULSE 77; TEMP 97.9
--- NOTE | 2020-04-11 10:36 | NUR ---
First visit from the road machine operator. No needs right now.
--- NOTE | 2020-04-11 10:36 | NUR ---
Patient requires SBA with FWW and gait belt. Holds on to furniture with ambulation. Gait slow and steady. Fall protocol initiated.
--- NOTE | 2020-04-11 11:01 | NUR ---
The patient is a readmission. She was readmitted under observation status for pneumothoax post biopsy. LEONIE met with the patient to complete initial intake. The patient lives alone in [place]. But the patient's daughter Jo is staying with her at this time for support. The patient has a walker, w/c, canes and uses oxygen at 2L at home. The patient is independent with ADLs. The patient does get [facility]. She states they visit her 2/3 times a week. The patients to continue with [facility] at discharge. The patient's PCP is Dr. Rogers and [facility]. The patient's daughter Jo picks up her medications. The patient does not advanced directives in the EMR but states they are completed. The patient plans to go home and Jo will provide transportation. SW contacted [facility]. They began services with the patient on March 29 and will continue after the patient is discharged. [facility] will need the patient's discharge orders. Will continue to monitor.
--- NOTE | 2020-04-11 11:17 | NUR ---
Dr Roberts here to see patient.
--- NOTE | 2020-04-11 11:18 | NUR ---
Miguellich valved clamped at [address] order.
[2020-04-11 11:58] VITALS: BP 109/68; PULSE 73; TEMP 97.8
--- NOTE | 2020-04-11 13:45 | NUR ---
Heimlich valve removed per Dr Arriaza. Vaseline gauze and 4x4 applied. Tolerated well.
[2020-04-11] MEDS ORDERED: SENNA-LAX8.6 MG PO (14:46)
[2020-04-11] MEDS ORDERED: VITAMIN D 1001000 IU PO (15:04)
[2020-04-11] MEDS ORDERED: DULCOLAX S10 MG/SUPP RC (15:07)
[2020-04-11] MEDS ORDERED: STOOL SOFTENER100 M2 PO (15:09)
--- NOTE | 2020-04-11 16:59 | NUR ---
The patient to discharge home with her daughter today, 04/11 with [facility]. SW faxed discharge orders to [facility]. There are no additional needs at this time.
--- NOTE | 2020-04-11 17:29 | NUR ---
Discharge instructions reviewed with patient, verbalized understanding. Discharged via wheelchair to auto/home with family at 1730.
== END 2020-04-11 17:30 | disposition home or self-care (01) ==
LOC: COL.RAD 06:39 → SURG 10:14
PROVIDERS: Physician Assistant; ADMIT Family Medicine
DX: C34.12 Malignant neoplasm of upper lobe, left bronchus or lung (principal); J95.811 Postprocedural pneumothorax; J44.9 Chronic obstructive pulmonary disease, unspecified; R09.02 Hypoxemia; I27.20 Pulmonary hypertension, unspecified; S72.92XD Unspecified fracture of left femur, subsequent encounter for closed fracture with routine healing; F17.210 Nicotine dependence, cigarettes, uncomplicated; Z79.82 Long term (current) use of aspirin
CPT/HCPCS: 99239; A9284; G0378